=== PATIENT | male | born 1955 | race Caucasian/White ===

== ENCOUNTER 2018-09-07 12:05 | Inpatient (IN) | payer OTHER ==
[2018-09-07] VITALS (10 sets, daily range): BP systolic 91–106; BP diastolic 48–71
[~2018-09-07] VITALS: Ht 185.4 cm; Wt 108.9 kg
--- OUTSIDE RECORDS SUMMARY | 2018-09-07 13:39 | XMS REPORT ---
Author Author MARNIE NGUYỄN [facility] [address] Address [address] [place] [address] Care Team Providers Care Mushroom Picker Name Role Phone MARNIE NGUYỄN Unavailable PROBLEMS Type Condition ICD9-CM Code [id number] Code Onset Dates Condition Status SNOMED Code Problem Renal calculus, left N20.0 Active 98190781 Problem Degenerative disc disease, lumbar M51.36 Active 31770043 Problem Hypothyroidism (acquired) E03.9 Active 633790091 Problem Essential hypertension I10 Active 51783724 Problem Hyperlipidemia LDL goal <130 E78.5 Active 82219136 Problem Hyperlipidemia LDL goal <130 E78.5 Active 35488547 ALLERGIES No Information ENCOUNTERS Encounter Location Date Diagnosis [facility] [address] [place] [address] Jun, [facility] [address] [place] [address] May, Essential hypertension I10 and Hyperlipidemia LDL goal <130 E78.5 [facility] [address] [place] [address] May, [facility] [address] [place] [address] March, Essential hypertension I10 [facility] [address] [place] [address] March, [facility] [address] [place] [address] March, [facility] [address] [place] [address] Feb, Essential hypertension I10 and Hypothyroidism (acquired) E03.9 [facility] [address] [place] [address] Jan, [facility] [address] [place] [address] Jan, Renal calculus, left N20.0 [facility] [place] [address] [place] [address] Jan, [facility] [address] [address] Dec, Degenerative disc disease, lumbar M51.36 ; Essential hypertension I10 and Hyperlipidemia LDL goal <130 E78.5 [facility] [address] [place] [address] Feb, Lumbar spine strain, initial encounter S39.012A and Tubular adenoma of colon D12.6 [facility] [address] [place] [address] Dec, Essential hypertension I10 ; Hyperlipidemia LDL goal <130 E78.5 ; Screening for colon cancer Z12.11 and Hypothyroidism (acquired) E03.9 [facility] [address] [address] Dec, [facility] [address] [address] Dec, Essential hypertension I10 [facility] [address] [place] [address] Nov, [facility] [address] [address] Nov, [facility] [address] [address] Nov, [facility] [address] [address] Jun, [facility] [address] [address] Apr, Essential hypertension I10 [facility] [address] Apr, Essential hypertension with goal blood pressure less than 140\/90 I10 [facility] [address] [address] March, Essential hypertension with goal blood pressure less than 140\/90 I10 ; Other seasonal allergic rhinitis J30.2 and Oral herpes simplex infection B00.2 [address] [address] [place] [address] March, Essential hypertension with goal blood pressure less than 140\/90 I10 [facility] [place] [address] [place] [address] Feb, Essential hypertension with goal blood pressure less than 140\/90 I10 [facility] [place] [address] [place] [address] Dec, [facility] [place] [address] [place] [address] Dec, Essential hypertension I10 [facility] [place] [address] [place] [address] Oct, Essential hypertension I10 ; Hyperlipidemia, unspecified hyperlipidemia type E78.5 ; Bilateral low back pain without sciatica M54.5 and Skin lesion L98.9 [facility] [place] [address] [place] [address] Sep, [facility] [place] [address] [place] [address] Sep, [facility] [place] [address] [place] [address] Aug, [facility] [place] [address] [place] [address] Aug, Seborrheic keratosis L82.1 [facility] [place] [address] [place] [address] May, [facility] [place] [address] [place] [address] May, Visit for suture removal V58.32 [facility] [place] [address] [place] [address] 08 May, 2015 Visit for suture removal V58.32 and Seborrheic keratosis 702.19 [facility] [place] [address] [place] [address] May, Nevus 216.9 [facility] [address] [facility] [id number] [address] Feb, [facility] [address] [place] [id number] [address] Feb, [facility] [address] [place] [address] Jul, [facility] [address] [facility] [id number] [place] [address] Jul, [facility] [address] [place] [address] Aug, [facility] [place] [address] [place] [address] Aug, [facility] [address] [place] [address] Jul, IMMUNIZATIONS No Known Immunizations SOCIAL HISTORY Never Assessed REASON FOR VISIT follow up lab PLAN OF CARE VITAL SIGNS MEDICATIONS Unknown Medications RESULTS No Results PROCEDURES No Known procedures INSTRUCTIONS MEDICATIONS ADMINISTERED No Known Medications MEDICAL (GENERAL) HISTORY Type Description Date Medical History Nevus Medical History Hypothyroidism Medical History Hyperlipidemia Medical History Hypertension Medical History Arthritis Medical History kindey stone Surgical History left knee replacement Surgical History right knee replacement Hospitalization History Surgery(s) only Hospitalization History kidney stone 2018
--- OUTSIDE RECORDS SUMMARY | 2018-09-07 13:39 | XMS REPORT ---
Author Author MARNIE NGUYỄN [facility] [address] Address [address] [place] [address] Care Team Providers Care Pen Tender Name Role Phone MARNIE NGUYỄN Unavailable PROBLEMS Type Condition ICD9-CM Code TOJ70-PD Code Onset Dates Condition Status SNOMED Code Problem Renal calculus, left N20.0 Active 76227706 Problem Degenerative disc disease, lumbar M51.36 Active 64166906 Problem Hypothyroidism (acquired) E03.9 Active 440454488 Problem Essential hypertension I10 Active 99614611 Problem Hyperlipidemia LDL goal <130 E78.5 Active 64425196 Problem Hyperlipidemia LDL goal <130 E78.5 Active 11754361 ALLERGIES No Information ENCOUNTERS Encounter Location Date Diagnosis [facility] [address] [place] [address] Jun, [facility] [address] [place] [address] May, Essential hypertension I10 and Hyperlipidemia LDL goal <130 E78.5 [facility] [address] [place] [address] May, [facility] [address] [place] [address] March, Essential hypertension I10 [facility] [address] [place] [address] March, [facility] [address] [place] [address] March, [facility] [address] [place] [address] Feb, Essential hypertension I10 and Hypothyroidism (acquired) E03.9 [facility] [address] [place] [address] Jan, [facility] [address] [place] [address] Jan, Renal calculus, left N20.0 [facility] [place] [address] [place] [address] Jan, [facility] [address] [address] Dec, Degenerative disc disease, lumbar M51.36 ; Essential hypertension I10 and Hyperlipidemia LDL goal <130 E78.5 [facility] [address] [place] [address] Feb, Lumbar spine strain, initial encounter S39.012A and Tubular adenoma of colon D12.6 [facility] [address] [place] [address] Dec, Essential hypertension I10 ; Hyperlipidemia LDL goal <130 E78.5 ; Screening for colon cancer Z12.11 and Hypothyroidism (acquired) E03.9 [facility] [address] [address] Dec, [facility] [address] [address] Dec, Essential hypertension I10 [facility] [address] [place] [address] Nov, [facility] [address] [address] Nov, [facility] [address] [address] Nov, [facility] [address] [address] Jun, [facility] [address] [address] Apr, Essential hypertension I10 [facility] [address] Apr, Essential hypertension with goal blood pressure less than 140\/90 I10 [facility] [address] [address] March, Essential hypertension with goal blood pressure less than 140\/90 I10 ; Other seasonal allergic rhinitis J30.2 and Oral herpes simplex infection B00.2 [address] [address] [place] [address] March, Essential hypertension with goal blood pressure less than 140\/90 I10 [facility] [place] [address] [place] [address] Feb, Essential hypertension with goal blood pressure less than 140\/90 I10 [facility] [place] [address] [place] [address] Dec, [facility] [place] [address] [place] [address] Dec, Essential hypertension I10 [facility] [place] [address] [place] [address] Oct, Essential hypertension I10 ; Hyperlipidemia, unspecified hyperlipidemia type E78.5 ; Bilateral low back pain without sciatica M54.5 and Skin lesion L98.9 [facility] [place] [address] [place] [address] Sep, [facility] [address] [place] [address] Sep, [facility] [address] [place] [address] Aug, [facility] [address] [place] [address] Aug, Seborrheic keratosis L82.1 [facility] [address] [place] [address] May, [facility] [address] [place] [address] May, Visit for suture removal V58.32 [facility] [address] [place] [address] 08 May, 2015 Visit for suture removal V58.32 and Seborrheic keratosis 702.19 [facility] [place] [address] [place] [address] May, Nevus 216.9 [facility] [address] [facility] [id number] [address] Feb, [facility] [place] [address] [place] [id number] [address] Feb, [facility] [address] [place] [address] Jul, [facility] [place] [address] [facility] [id number] [place] [address] Jul, [facility] [address] [place] [address] Aug, [facility] [place] [address] [place] [address] Aug, [facility] [address] [place] [address] Jul, IMMUNIZATIONS No Known Immunizations SOCIAL HISTORY Never Assessed REASON FOR VISIT questions about lab results PLAN OF CARE VITAL SIGNS MEDICATIONS Unknown [...]
--- OUTSIDE RECORDS SUMMARY | 2018-09-07 13:39 | XMS REPORT ---
Author Author MARNIE NGUYỄN Organization [facility] [address] Address [address] [place] [address] Care Team Providers Care Supervisor Ditching Name Role Phone MARNIE NGUYỄN Unavailable PROBLEMS Type Condition ICD9-CM Code VVT23-QS Code Onset Dates Condition Status SNOMED Code Problem Renal calculus, left N20.0 Active 72604202 Problem Degenerative disc disease, lumbar M51.36 Active 97764149 Problem Hypothyroidism (acquired) E03.9 Active 311058842 Problem Essential hypertension I10 Active 06786219 Problem Hyperlipidemia LDL goal <130 E78.5 Active 98513058 Problem Hyperlipidemia LDL goal <130 E78.5 Active 34017439 ALLERGIES No Information ENCOUNTERS Encounter Location Date Diagnosis [facility] [address] [place] [address] Jun, [facility] [address] [place] [address] May, Essential hypertension I10 and Hyperlipidemia LDL goal <130 E78.5 [facility] [address] [place] [address] May, [facility] [address] [place] [address] March, Essential hypertension I10 [facility] [address] [place] [address] March, [facility] [address] [place] [address] March, [facility] [address] [place] [address] Feb, Essential hypertension I10 and Hypothyroidism (acquired) E03.[address] [address] Jan, [address] [address] Jan, Renal calculus, left N20.[address] [address] Jan, [address] [address] Dec, Degenerative disc disease, lumbar M51.36 ; Essential hypertension I10 and Hyperlipidemia LDL goal <[address] [address] Feb, Lumbar spine strain, initial encounter S39.012A and Tubular adenoma of colon D12.[address] [address] Dec, Essential hypertension I10 ; Hyperlipidemia LDL goal <130 E78.5 ; Screening for colon cancer Z12.11 and Hypothyroidism (acquired) E03.[address] [address] Dec, [address] [address] Dec, Essential hypertension I10 [address] [address] Nov, [address] [address] Nov, [address] [address] Nov, [address] [address] Jun, [address] [address] Apr, Essential hypertension I10 [address] [address] Apr, Essential hypertension with goal blood pressure less than 140\/[address] [address] March, Essential hypertension with goal blood pressure less than 140\/90 I10 ; Other seasonal allergic rhinitis J30.2 and Oral herpes simplex infection B00.[address] [address] March, Essential hypertension with goal blood pressure less than 140\/90 I10 [facility] [address] [place] [address] 07 Feb, 2016 Essential hypertension with goal blood pressure less than 140\/[address] [address] Dec, [address] [address] Dec, Essential hypertension I10 [address] [address] Oct, Essential hypertension I10 ; Hyperlipidemia, unspecified hyperlipidemia type E78.5 ; Bilateral low back pain without sciatica M54.5 and Skin lesion L98.[address] [address] Sep, [address] [address] Sep, [address] [address] Aug, [address] [address] Aug, Seborrheic keratosis L82.[address] [address] May, [address] [address] 16 May, 2015 Visit for suture removal V58.[address] [address] 08 May, 2015 Visit for suture removal V58.32 and Seborrheic keratosis 702.[address] [address] May, Nevus 216.9 [facility] [address] [id number] [address] 14 Feb, 2015 [facility] [address] [place] [id number] [address] 13 Feb, [address] [address] 10 Jul, 2014 [facility] [address] [place] [id number] [address] Jul, [facility] [address] [place] [address] Aug, [facility] [address] [place] [address] Aug, [address] [address] Jul, IMMUNIZATIONS No Known Immunizations SOCIAL HISTORY Never Assessed REASON FOR VISIT Medication refill request PLAN OF CARE VITAL SIGNS MEDICATIONS Medication Instructions Dosage Frequency Start Date End Date Duration Status Norvasc 2.5 MG Orally Once a day 1 tablet 24h Feb, Active RESULTS No Results PROCEDURES No Known procedures INSTRUCTIONS MEDICATIONS ADMINISTERED No Known Medications MEDICAL (GENERAL) HISTORY Type Description Date Medical History Nevus Medical History Hypothyroidism Medical History Hyperlipidemia Medical History Hypertension Medical History Arthritis Medical History kindey stone Surgical History left knee replacement Surgical History right knee replacement Hospitalization History Surgery(s) only Hospitalization History kidney stone 2017
--- OUTSIDE RECORDS SUMMARY | 2018-09-07 13:39 | XMS REPORT ---
Author Author MARNIE NGUYỄN [facility] [address] Address [address] [place] [address] Care Team Providers Care Supervisor Sign Shop Name Role Phone MARNIE NGUYỄN Unavailable PROBLEMS Type Condition ICD9-CM Code GNI76-AF Code Onset Dates Condition Status SNOMED Code Problem Renal calculus, left N20.0 Active 86125378 Problem Degenerative disc disease, lumbar M51.36 Active 05156082 Problem Hypothyroidism (acquired) E03.9 Active 499795961 Problem Essential hypertension I10 Active 96794191 Problem Hyperlipidemia LDL goal <130 E78.5 Active 48054514 Problem Hyperlipidemia LDL goal <130 E78.5 Active 41131614 ALLERGIES No Information ENCOUNTERS Encounter Location Date Diagnosis [facility] [address] [place] [address] Jun, [facility] [address] [place] [address] May, Essential hypertension I10 and Hyperlipidemia LDL goal <130 E78.5 [facility] [address] [place] [address] May, [facility] [address] [place] [address] March, Essential hypertension I10 [facility] [address] [place] [address] March, [facility] [address] [place] [address] March, [facility] [address] [place] [address] Feb, Essential hypertension I10 and Hypothyroidism (acquired) E03.9 [facility] [address] [place] [address] Jan, [facility] [address] [place] [address] Jan, Renal calculus, left N20.0 [facility] [place] [address] [place] [address] Jan, [facility] [address] [address] Dec, Degenerative disc disease, lumbar M51.36 ; Essential hypertension I10 and Hyperlipidemia LDL goal <130 E78.5 [facility] [address] [place] [address] Feb, Lumbar spine strain, initial encounter S39.012A and Tubular adenoma of colon D12.6 [facility] [address] [place] [address] Dec, Essential hypertension I10 ; Hyperlipidemia LDL goal <130 E78.5 ; Screening for colon cancer Z12.11 and Hypothyroidism (acquired) E03.9 [facility] [address] [address] Dec, [facility] [address] [address] Dec, Essential hypertension I10 [facility] [address] [place] [address] Nov, [facility] [address] [address] Nov, [facility] [address] [address] Nov, [facility] [address] [address] Jun, [facility] [address] [address] Apr, Essential hypertension I10 [facility] [address] Apr, Essential hypertension with goal blood pressure less than 140\/90 I10 [facility] [address] [address] March, Essential hypertension with goal blood pressure less than 140\/90 I10 ; Other seasonal allergic rhinitis J30.2 and Oral herpes simplex infection B00.2 [address] [address] [place] [address] March, Essential hypertension with goal blood pressure less than 140\/90 I10 [facility] [place] [address] [place] [address] Feb, Essential hypertension with goal blood pressure less than 140\/90 I10 [facility] [place] [address] [place] [address] Dec, [facility] [place] [address] [place] [address] Dec, Essential hypertension I10 [facility] [place] [address] [place] [address] Oct, Essential hypertension I10 ; Hyperlipidemia, unspecified hyperlipidemia type E78.5 ; Bilateral low back pain without sciatica M54.5 and Skin lesion L98.9 [facility] [place] [address] [place] [address] Sep, [facility] [place] [address] [place] [address] Sep, [facility] [place] [address] [place] [address] Aug, [facility] [address] [place] [address] Aug, Seborrheic keratosis L82.1 [facility] [place] [address] [place] [address] May, [facility] [address] [place] [address] May, Visit for suture removal V58.32 [facility] [place] [address] [place] [address] 08 May, 2015 Visit for suture removal V58.32 and Seborrheic keratosis 702.19 [facility] [place] [address] [place] [address] May, Nevus 216.9 [facility] [address] [facility] [id number] [address] Feb, [facility] [address] [place] [id number] [address] Feb, [facility] [place] [address] [place] [address] Jul, [facility] [address] [facility] [id number] [place] [address] Jul, [facility] [address] [place] [address] Aug, [facility] [place] [address] [place] [address] Aug, [facility] [address] [place] [address] Jul, IMMUNIZATIONS No Known Immunizations SOCIAL HISTORY Never Assessed REASON FOR VISIT Lab (walk-in), Fasting lipids. Shaunna Grace RN PLAN OF CARE Activity Details Follow Up prn Reason: VITAL SIGNS MEDICATIONS Unknown Medications RESULTS No Results PROCEDURES Procedure Date Ordered Result Body Site LIPID PANEL June 17, 2018 VENIPUNCT, ROUTINE* June 17, 2018 INSTRUCTIONS MEDICATIONS ADMINISTERED No Known Medications MEDICAL (GENERAL) HISTORY Type Description Date Medical History Nevus Medical History Hypothyroidism Medical History Hyperlipidemia Medical History Hypertension Medical History Arthritis Medical History kindey stone Surgical History left knee replacement Surgical History right knee replacement Hospitalization History Surgery(s) only Hospitalization History kidney stone 2018
--- OUTSIDE RECORDS SUMMARY | 2018-09-07 13:39 | XMS REPORT ---
Author Author MARNIE NGUYỄN Organization [facility] [address] Address [address] [place] [address] Care Team Providers Care Tare Weigher Name Role Phone MARNIE NGUYỄN Unavailable PROBLEMS Type Condition ICD9-CM Code CSC63-PU Code Onset Dates Condition Status SNOMED Code Problem Renal calculus, left N20.0 Active 57650151 Problem Degenerative disc disease, lumbar M51.36 Active 12348826 Problem Hypothyroidism (acquired) E03.9 Active 958451772 Problem Essential hypertension I10 Active 76048622 Problem Hyperlipidemia LDL goal <130 E78.5 Active 92283664 Problem Hyperlipidemia LDL goal <130 E78.5 Active 79396671 ALLERGIES No Information ENCOUNTERS Encounter Location Date Diagnosis [facility] [address] [place] [address] Jun, [facility] [address] [place] [address] May, Essential hypertension I10 and Hyperlipidemia LDL goal <130 E78.5 [facility] [address] [place] [address] May, [facility] [address] [place] [address] March, Essential hypertension I10 [facility] [address] [place] [address] March, [facility] [address] [place] [address] March, [facility] [address] [place] [address] Feb, Essential hypertension I10 and Hypothyroidism (acquired) E03.[address] [address] Jan, [facility] [address] [place] [address] Jan, Renal calculus, left N20.[address] [address] Jan, [address] [address] Dec, Degenerative disc disease, lumbar M51.36 ; Essential hypertension I10 and Hyperlipidemia LDL goal <[address] [address] Feb, Lumbar spine strain, initial encounter S39.012A and Tubular adenoma of colon D12.[address] [address] Dec, Essential hypertension I10 ; Hyperlipidemia LDL goal <130 E78.5 ; Screening for colon cancer Z12.11 and Hypothyroidism (acquired) E03.[address] [address] Dec, [address] [address] Dec, Essential hypertension I10 [address] [address] Nov, [address] [address] Nov, [address] [address] Nov, [address] [address] Jun, [address] [address] Apr, Essential hypertension I10 [address] [address] Apr, Essential hypertension with goal blood pressure less than 140\/[address] [address] March, Essential hypertension with goal blood pressure less than 140\/90 I10 ; Other seasonal allergic rhinitis J30.2 and Oral herpes simplex infection B00.[address] [address] March, Essential hypertension with goal blood pressure less than 140\/90 I10 [facility] [place] [address] [place] [address] 07 Feb, 2016 Essential hypertension with goal blood pressure less than 140\/[address] [address] Dec, [address] [address] Dec, Essential hypertension I10 [address] [address] Oct, Essential hypertension I10 ; Hyperlipidemia, unspecified hyperlipidemia type E78.5 ; Bilateral low back pain without sciatica M54.5 and Skin lesion L98.[address] [address] Sep, [address] [address] Sep, [address] [address] Aug, [address] [address] Aug, Seborrheic keratosis L82.[address] [address] May, [address] [address] 16 May, 2015 Visit for suture removal V58.[address] [address] 08 May, 2015 Visit for suture removal V58.32 and Seborrheic keratosis 702.[address] [address] May, Nevus 216.9 [facility] [address] [id number] [address] 14 Feb, 2015 [facility] [address] [place] [id number] [address] 13 Feb, [address] [address] 10 Jul, 2014 [facility] [address] [place] [id number] [address] Jul, [facility] [address] [place] [address] Aug, [address] [address] Aug, [address] [address] Jul, IMMUNIZATIONS No Known Immunizations SOCIAL HISTORY Never Assessed REASON FOR VISIT refill request PLAN OF CARE VITAL SIGNS MEDICATIONS Medication Instructions Dosage Frequency Start Date End Date Duration Status Atorvastatin Calcium 40 mg Orally Once a day at bedtime 1 tablet March, Active RESULTS No Results PROCEDURES No Known [...]
--- OUTSIDE RECORDS SUMMARY | 2018-09-07 13:40 | XMS REPORT ---
Author YANG Beal Organization [employer] Address Unknown Phone Unavailable Care Team Providers Care Managing Manager Name Role Phone YANG HALL CP Unavailable Allergies No Known Allergies Problems No Known Problems Medications Medication Code System Code Instructions Start Date End Date Status Dosage Carvedilol [facility] [address]-93 12.5 MG Orally Twice a day 1 tablet with food Results No Known Results Summary Purpose [employer] Submission
--- OUTSIDE RECORDS SUMMARY | 2018-09-07 13:40 | XMS REPORT ---
Author YANG Beal Organization [employer] Address Unknown Phone Unavailable Care Team Providers Care Agriscience Technology Instructor Name Role Phone YANG HALL CP Unavailable Allergies No Known Allergies Problems No Known Problems Medications No Known Medications Results No Known Results Summary Purpose [employer] Submission
--- OUTSIDE RECORDS SUMMARY | 2018-09-07 13:40 | XMS REPORT ---
Author Author MARNIE NGUYỄN Organization [facility] [place] Address [address] [place] [address] Care Team Providers Care Staking Engineer Name Role Phone MARNIE NGUYỄN Unavailable PROBLEMS Type Condition ICD9-CM Code GCA77-CB Code Onset Dates Condition Status SNOMED Code Problem Renal calculus, left N20.0 Active 96733876 Problem Degenerative disc disease, lumbar M51.36 Active 30885865 Problem Hypothyroidism (acquired) E03.9 Active 985503369 Problem Essential hypertension I10 Active 66407111 Problem Hyperlipidemia LDL goal <130 E78.5 Active 96100073 Problem Hyperlipidemia LDL goal <130 E78.5 Active 74512727 ALLERGIES Substance Reaction Event Type Date Status Hydrochlorothiazide rash Drug Allergy Dec, Active ENCOUNTERS Encounter Location Date Diagnosis [facility] [place] [address] [facility] [address] [id number] [place] [id number] March, Essential hypertension I10 [facility] [place] [address] [facility] [address] [id number] [place] [id number] March, [facility] [place] [address] [facility] [address] [id number] [place] [id number] March, [facility] [place] [address] [facility] [address] [id number] [place] [id number] Feb, Essential hypertension I10 and Hypothyroidism (acquired) E03.9 [facility] [place] [address] [facility] [address] [id number] [place] [id number] Jan, [facility] [place] [address] [facility] [address] [id number] [place] [phone] Jan, Renal calculus, left N20.0 [facility] [place] [address] [facility] [address] [id number] [place] [id number] Jan, [facility] [place] [address] [facility] [address] [id number] [place] [id number] Dec, Degenerative disc disease, lumbar M51.36 ; Essential hypertension I10 and Hyperlipidemia LDL goal <130 E78.5 [facility] [place] [address] [facility] [address] [id number] [place] [id number] Feb, Lumbar spine strain, initial encounter S39.012A and Tubular adenoma of colon D12.6 [facility] [place] [address] [facility] [address] [id number] [place] [id number] Dec, Essential hypertension I10 ; Hyperlipidemia LDL goal <130 E78.5 ; Screening for colon cancer Z12.11 and Hypothyroidism (acquired) E03.9 [facility] [place] [address] [facility] [address] [id number] [place] [id number] Dec, [facility] [place] [address] [facility] [address] [id number] [place] [id number] Dec, Essential hypertension I10 [facility] [place] [address] [facility] [address] [id number] [place] [id number] Nov, [facility] [place] [address] [facility] [address] [id number] [place] [id number] Nov, [facility] [place] [address] [facility] [address] [id number] [place] [id number] Nov, [facility] [place] [address] [facility] [address] [id number] [place] [id number] Jun, [facility] [place] [address] [facility] [address] [id number] [place] [id number] Apr, Essential hypertension I10 [facility] [place] [address] [facility] [address] [id number] [place] [id number] Apr, Essential hypertension with goal blood pressure less than 140\/90 I10 [facility] [place] [address] [facility] [address] [id number] [place] [id number] March, Essential hypertension with goal blood pressure less than 140\/90 I10 ; Other seasonal allergic rhinitis J30.2 and Oral herpes simplex infection B00.2 [facility] [place] [address] [facility] [address] [id number] [place] [id number] March, Essential hypertension with goal blood pressure less than 140\/90 I10 [facility] [place] [address] [facility] [address] [id number] [place] [id number] Feb, Essential hypertension with goal blood pressure less than 140\/90 I10 [facility] [place] [address] [facility] [address] [id number] [place] [id number] Dec, [facility] [place] [address] [facility] [address] [id number] [place] [id number] Dec, Essential hypertension I10 [facility] [place] [address] [facility] [address] [id number] [place] [id number] Oct, Essential hypertension I10 ; Hyperlipidemia, unspecified hyperlipidemia type E78.5 ; Bilateral low back pain without sciatica M54.5 and Skin lesion L98.9 [facility] [place] [address] [facility] [address] [id number] [place] [id number] Sep, [facility] [place] [address] [facility] [address] [id number] [place] [id number] Sep, [facility] [place] [address] [facility] [address] [id number] [place] [id number] Aug, [facility] [place] [address] [place] [address] [address] [id number] [place] [id number] Aug, Seborrheic keratosis L82.1 [facility] [place] [address] [facility] [address] [id number] [place] [id number] May, [facility] [place] [address] [facility] [address] [id number] [place] [id number] May, Visit for suture removal V58.32 [facility] [place] [address] [facility] [address] [id number] [place] [id number] 08 May, 2015 Visit for suture removal V58.32 and Seborrheic keratosis 702.19 [facility] [place] [address] [facility] [address] [id number] [place] [id number] May, Nevus 216.9 [facility] [address] [facility] [id number] [place] [address] 14 Feb, 2015 [facility] [address] [facility] [id number] [place] [address] Feb, [facility] [place] [address] [facility] [address] [id number] [place] [id number] Jul, [facility] [address] [facility] [id number] [place] [address] Jul, [facility] [place] [address] [facility] [address] [id number] [place] [id number] Aug, [facility] [place] [address] [facility] [address] [id number] [place] [id number] Aug, [facility] [place] [address] [facility] [address] [id number] [place] [id number] Jul, IMMUNIZATIONS No Known Immunizations SOCIAL HISTORY Never Assessed REASON FOR VISIT back pain for the past 2 weeks, [facility] PLAN OF CARE Activity Details Follow Up 2 Weeks Reason:pattirstriston BP check VITAL SIGNS Height 73 in 2018-01-18 Weight 237.4 lbs 2018-01-18 Temperature 97.7 degrees Fahrenheit 2018-01-18 Heart Rate 68 bpm 2018-01-18 Respiratory Rate 18 2018-01-18 BMI 31.32 kg/m2 2018-01-18 Blood pressure systolic 154 mmHg 2018-01-18 Blood pressure diastolic 92 mmHg 2018-01-18 MEDICATIONS Medication Instructions Dosage Frequency Start Date End Date Duration Status Flonase Allergy Relief 50 MCG/ACT Nasally Once a day 1 spray in each nostril 24h March, 30 day(s) Active Cyclobenzaprine HCl 5 mg Orally Three times a day 1 tablet as needed 8h Feb, Active Carvedilol 25 MG Orally Twice a day 1 tablet with food 12h 90 days Active Levothyroxine Sodium 75 mcg Orally Once a day 1 tablet 24h 90 days Active Atorvastatin Calcium 20MG Take 1 tablet daily at bedtime. Avoid grapefruit & grapefruit products. 90 Active Losartan Potassium 100MG Orally Once a day 1 tablet 24h 90 Active RESULTS No Results PROCEDURES Procedure Date Ordered Result Body Site COMPREHEN METABOLIC PANEL Jan 18, 2018 COMPLETE CBC W/AUTO DIFF WBC Jan 18, 2018 VENIPUNCT, ROUTINE* Jan 18, 2018 INSTRUCTIONS MEDICATIONS ADMINISTERED No Known Medications MEDICAL (GENERAL) HISTORY Type Description Date Medical History Nevus Medical History Hypothyroidism Medical History Hyperlipidemia Medical History Hypertension Medical History Arthritis Medical History kindey stone Surgical History left knee replacement Surgical History right knee replacement Hospitalization History Surgery(s) only Hospitalization History kidney stone 2018
--- OUTSIDE RECORDS SUMMARY | 2018-09-07 13:40 | XMS REPORT ---
Author YANG Beal Organization [employer] Address Unknown Phone Unavailable Care Team Providers Care Dairy Science Teacher Name Role Phone YANG HALL CP Unavailable Allergies No Known Allergies Problems No Known Problems Medications No Known Medications Results No Known Results Summary Purpose [employer] Submission
--- OUTSIDE RECORDS SUMMARY | 2018-09-07 13:40 | XMS REPORT ---
Author Author MARNIE NGUYỄN Organization [facility] [address] Address [address] [place] [address] Care Team Providers Care Manager Fast Food Name Role Phone MARNIE NGUYỄN Unavailable PROBLEMS Type Condition ICD9-CM Code DII53-PQ Code Onset Dates Condition Status SNOMED Code Problem Renal calculus, left N20.0 Active 00164171 Problem Degenerative disc disease, lumbar M51.36 Active 23245512 Problem Hypothyroidism (acquired) E03.9 Active 101623393 Problem Essential hypertension I10 Active 57143967 Problem Hyperlipidemia LDL goal <130 E78.5 Active 87014934 Problem Hyperlipidemia LDL goal <130 E78.5 Active 82685056 ALLERGIES No Information ENCOUNTERS Encounter Location Date Diagnosis [facility] [address] [place] [address] May, [facility] [place] [address] [place] [address] March, Essential hypertension I10 [facility] [place] [address] [place] [address] March, [facility] [address] [place] [address] March, [address] [address] Feb, Essential hypertension I10 and Hypothyroidism (acquired) E03.9 [facility] [address] [place] [address] Jan, [facility] [address] [address] Jan, Renal calculus, left N20.0 [facility] [place] [address] [place] [address] Jan, [facility] [place] [address] [place] [address] 28 Dec, 2017 Degenerative disc disease, lumbar M51.36 ; Essential hypertension I10 and Hyperlipidemia LDL goal <[address] [address] Feb, Lumbar spine strain, initial encounter S39.012A and Tubular adenoma of colon D12.6 [facility] [place] [address] [place] [address] Dec, Essential hypertension I10 ; Hyperlipidemia LDL goal <130 E78.5 ; Screening for colon cancer Z12.11 and Hypothyroidism (acquired) E03.9 [facility] [place] [address] [place] [address] Dec, [facility] [place] [address] [place] [address] Dec, Essential hypertension I10 [facility] [place] [address] [place] [address] Nov, [facility] [place] [address] [place] [address] Nov, [facility] [place] [address] [place] [address] Nov, [facility] [place] [address] [place] [address] Jun, [facility] [place] [address] [place] [address] Apr, Essential hypertension I10 [facility] [place] [address] [place] [address] Apr, Essential hypertension with goal blood pressure less than 140\/90 I10 [facility] [place] [address] [place] [address] March, Essential hypertension with goal blood pressure less than 140\/90 I10 ; Other seasonal allergic rhinitis J30.2 and Oral herpes simplex infection B00.2 [facility] [place] [address] [place] [address] March, Essential hypertension with goal blood pressure less than 140\/90 I10 [facility] [place] [address] [place] [address] Feb, Essential hypertension with goal blood pressure less than 140\/90 I10 [facility] [place] [address] [place] [address] Dec, [facility] [place] [address] [place] [address] Dec, Essential hypertension I10 [facility] [place] [address] [place] [address] Oct, Essential hypertension I10 ; Hyperlipidemia, unspecified hyperlipidemia type E78.5 ; Bilateral low back pain without sciatica M54.5 and Skin lesion L98.9 [facility] [address] [address] Sep, [facility] [address] [address] Sep, [facility] [address] [address] Aug, [facility] [address] [address] Aug, Seborrheic keratosis L82.1 [facility] [address] [address] May, [facility] [address] [address] May, Visit for suture removal V58.32 [facility] [address] [address] May, Visit for suture removal V58.32 and Seborrheic keratosis 702.[address] [address] May, Nevus 216.9 [facility] [address] [place] [address] 14 Feb, 2015 [facility] [address] [place] [address] Feb, [address] [address] Jul, [facility] [address] [place] [address] Jul, [address] [address] Aug, [address] [address] Aug, [address] [address] Jul, IMMUNIZATIONS No Known Immunizations SOCIAL HISTORY Never Assessed REASON FOR VISIT Blood pressure check PLAN OF CARE VITAL SIGNS MEDICATIONS Unknown [...]
--- OUTSIDE RECORDS SUMMARY | 2018-09-07 13:40 | XMS REPORT ---
Author Author ADITYA ARZATE [facility] [address] Address [address] [place] [address] Care Team Providers Care Mixer Runner Name Role Phone ADITYA ARZATE Unavailable PROBLEMS Type Condition ICD9-CM Code EPR03-PA Code Onset Dates Condition Status SNOMED Code Problem Renal calculus, left N20.0 Active 14858248 Problem Degenerative disc disease, lumbar M51.36 Active 91127791 Problem Hypothyroidism (acquired) E03.9 Active 244099939 Problem Essential hypertension I10 Active 09503846 Problem Hyperlipidemia LDL goal <130 E78.5 Active 11082066 Problem Hyperlipidemia LDL goal <130 E78.5 Active 28872434 ALLERGIES No Information ENCOUNTERS Encounter Location Date Diagnosis [facility] [place] [address] [place] [address] March, Essential hypertension I10 [facility] [address] [place] [address] March, [facility] [address] [place] [address] March, [facility] [place] [address] [place] [address] 05 Feb, 2018 Essential hypertension I10 and Hypothyroidism (acquired) E03.9 [facility] [address] [place] [address] Jan, [facility] [place] [address] [place] [address] Jan, Renal calculus, left N20.0 [facility] [address] [place] [address] Jan, [facility] [address] [place] [address] 28 Dec, 2017 Degenerative disc disease, lumbar M51.36 ; Essential hypertension I10 and Hyperlipidemia LDL goal <[address] [address] Feb, Lumbar spine strain, initial encounter S39.012A and Tubular adenoma of colon D12.6 [facility] [place] [address] [place] [address] Dec, Essential hypertension I10 ; Hyperlipidemia LDL goal <130 E78.5 ; Screening for colon cancer Z12.11 and Hypothyroidism (acquired) E03.9 [facility] [place] [address] [place] [address] Dec, [facility] [place] [address] [place] [address] Dec, Essential hypertension I10 [facility] [place] [address] [place] [address] Nov, [facility] [place] [address] [place] [address] Nov, [facility] [place] [address] [place] [address] Nov, [facility] [place] [address] [place] [address] Jun, [facility] [place] [address] [place] [address] Apr, Essential hypertension I10 [facility] [place] [address] [place] [address] Apr, Essential hypertension with goal blood pressure less than 140\/90 I10 [facility] [place] [address] [place] [address] March, Essential hypertension with goal blood pressure less than 140\/90 I10 ; Other seasonal allergic rhinitis J30.2 and Oral herpes simplex infection B00.2 [facility] [place] [address] [place] [address] March, Essential hypertension with goal blood pressure less than 140\/90 I10 [facility] [place] [address] [place] [address] Feb, Essential hypertension with goal blood pressure less than 140\/90 I10 [facility] [place] [address] [place] [address] Dec, [facility] [place] [address] [place] [address] Dec, Essential hypertension I10 [facility] [place] [address] [place] [address] Oct, Essential hypertension I10 ; Hyperlipidemia, unspecified hyperlipidemia type E78.5 ; Bilateral low back pain without sciatica M54.5 and Skin lesion L98.9 [facility] [place] [address] [place] [address] Sep, [facility] [place] [address] [place] [address] Sep, [facility] [place] [address] [place] [address] Aug, [facility] [place] [address] [place] [phone] Aug, Seborrheic keratosis L82.1 [facility] [place] [address] [place] [address] May, [facility] [place] [address] [place] [address] May, Visit for suture removal V58.32 [facility] [place] [address] [place] [address] May, Visit for suture removal V58.32 and Seborrheic keratosis 702.19 [facility] [place] [address] [place] [address] May, [address]us [address] [facility] [address] [place] [id number] [place] [address] 14 Feb, 2015 [facility] [address] [address] [address] Feb, [address] [address] Jul, [facility] [address] [place] [address] Jul, [address] [address] Aug, [facility] [address] [address] Aug, [facility] [address] [address] Jul, IMMUNIZATIONS No Known Immunizations SOCIAL HISTORY Never Assessed REASON FOR VISIT FMLA PLAN OF CARE VITAL SIGNS MEDICATIONS Unknown [...]
--- OUTSIDE RECORDS SUMMARY | 2018-09-07 13:40 | XMS REPORT ---
Author Author MARNIE NGUYỄN Organization [facility] [address] Address [address] [place] [address] Care Team Providers Care Business Continuity Manager Name Role Phone MARNIE NGUYỄN Unavailable PROBLEMS Type Condition ICD9-CM Code FGP88-XF Code Onset Dates Condition Status SNOMED Code Problem Renal calculus, left N20.0 Active 61469021 Problem Degenerative disc disease, lumbar M51.36 Active 21102066 Problem Hypothyroidism (acquired) E03.9 Active 310507071 Problem Essential hypertension I10 Active 12931389 Problem Hyperlipidemia LDL goal <130 E78.5 Active 91644433 Problem Hyperlipidemia LDL goal <130 E78.5 Active 68479580 ALLERGIES No Information ENCOUNTERS Encounter Location Date Diagnosis [facility] [address] [place] [address] Jun, [facility] [address] [place] [address] May, Essential hypertension I10 and Hyperlipidemia LDL goal <130 E78.5 [facility] [address] [place] [address] May, [facility] [address] [place] [address] March, Essential hypertension I10 [facility] [address] [place] [address] March, [facility] [address] [place] [address] March, [facility] [address] [place] [address] Feb, Essential hypertension I10 and Hypothyroidism (acquired) E03.[address] [address] Jan, [facility] [address] [place] [address] Jan, Renal calculus, left N20.[address] [address] Jan, [address] [address] Dec, Degenerative disc disease, lumbar M51.36 ; Essential hypertension I10 and Hyperlipidemia LDL goal <[address] [address] Feb, Lumbar spine strain, initial encounter S39.012A and Tubular adenoma of colon D12.[address] [address] Dec, Essential hypertension I10 ; Hyperlipidemia LDL goal <130 E78.5 ; Screening for colon cancer Z12.11 and Hypothyroidism (acquired) E03.[address] [address] Dec, [address] [address] Dec, Essential hypertension I10 [address] [address] Nov, [address] [address] Nov, [address] [address] Nov, [address] [address] Jun, [address] [address] Apr, Essential hypertension I10 [address] [address] Apr, Essential hypertension with goal blood pressure less than 140\/[address] [address] March, Essential hypertension with goal blood pressure less than 140\/90 I10 ; Other seasonal allergic rhinitis J30.2 and Oral herpes simplex infection B00.[address] [address] March, Essential hypertension with goal blood pressure less than 140\/90 I10 [facility] [address] [place] [address] 07 Feb, 2016 Essential hypertension with goal blood pressure less than 140\/[address] [address] Dec, [address] [address] Dec, Essential hypertension I10 [address] [address] Oct, Essential hypertension I10 ; Hyperlipidemia, unspecified hyperlipidemia type E78.5 ; Bilateral low back pain without sciatica M54.5 and Skin lesion L98.[address] [address] Sep, [address] [address] Sep, [address] [address] Aug, [address] [address] Aug, Seborrheic keratosis L82.[address] [address] May, [address] [address] 16 May, 2015 Visit for suture removal V58.[address] [address] 08 May, 2015 Visit for suture removal V58.32 and Seborrheic keratosis 702.[address] [address] May, Nevus 216.9 [facility] [address] [id number] [address] 14 Feb, 2015 [facility] [address] [place] [id number] [address] 13 Feb, [address] [address] 10 Jul, 2014 [facility] [address] [place] [id number] [address] Jul, [facility] [address] [place] [address] Aug, [facility] [address] [place] [address] Aug, [address] [address] Jul, IMMUNIZATIONS No Known Immunizations SOCIAL HISTORY Never Assessed REASON FOR VISIT Requests return call PLAN OF CARE VITAL SIGNS MEDICATIONS Unknown [...]
--- OUTSIDE RECORDS SUMMARY | 2018-09-07 13:40 | XMS REPORT ---
Author Author MARNIE NGUYỄN Organization [facility] [address] Address [address] [place] [address] Care Team Providers Care Bottle Cleaner Name Role Phone MARNIE NGUYỄN Unavailable PROBLEMS Type Condition ICD9-CM Code BLC62-RC Code Onset Dates Condition Status SNOMED Code Problem Renal calculus, left N20.0 Active 00635360 Problem Degenerative disc disease, lumbar M51.36 Active 80546471 Problem Hypothyroidism (acquired) E03.9 Active 514757332 Problem Essential hypertension I10 Active 53064335 Problem Hyperlipidemia LDL goal <130 E78.5 Active 34109893 Problem Hyperlipidemia LDL goal <130 E78.5 Active 75106064 ALLERGIES Substance Reaction Event Type Date Status Hydrochlorothiazide rash Drug Allergy Feb, Active ENCOUNTERS Encounter Location Date Diagnosis [facility] [address] [place] [address] May, Essential hypertension I10 and Hyperlipidemia LDL goal <130 E78.5 [facility] [address] [place] [address] May, [facility] [address] [place] [address] March, Essential hypertension I10 [facility] [address] [place] [address] March, [facility] [address] [place] [address] March, [facility] [address] [place] [address] Feb, Essential hypertension I10 and Hypothyroidism (acquired) E03.9 [facility] [address] [place] [address] Jan, [facility] [address] [place] [address] Jan, Renal calculus, left N20.0 [facility] [address] [place] [address] 14 Jan, 2018 [facility] [address] [place] [address] Dec, Degenerative disc disease, lumbar M51.36 ; Essential hypertension I10 and Hyperlipidemia LDL goal <130 E78.5 [facility] [address] [place] [address] Feb, Lumbar spine strain, initial encounter S39.012A and Tubular adenoma of colon D12.6 [facility] [address] [place] [address] Dec, Essential hypertension I10 ; Hyperlipidemia LDL goal <130 E78.5 ; Screening for colon cancer Z12.11 and Hypothyroidism (acquired) E03.9 [facility] [address] [place] [address] Dec, [facility] [address] [place] [address] Dec, Essential hypertension I10 [facility] [address] [place] [address] Nov, [facility] [address] [place] [address] Nov, [facility] [address] [place] [address] Nov, [facility] [address] [place] [address] Jun, [facility] [address] [place] [address] Apr, Essential hypertension I10 [facility] [address] [place] [address] Apr, Essential hypertension with goal blood pressure less than 140\/90 I10 [facility] [address] [place] [address] March, Essential hypertension with goal blood pressure less than 140\/90 I10 ; Other seasonal allergic rhinitis J30.2 and Oral herpes simplex infection B00.2 [facility] [address] [place] [address] March, Essential hypertension with goal blood pressure less than 140\/90 I10 [facility] [address] [place] [address] Feb, Essential hypertension with goal blood pressure less than 140\/90 I10 [facility] [address] [place] [address] Dec, [facility] [address] [place] [address] Dec, Essential hypertension I10 [facility] [address] [place] [address] Oct, Essential hypertension I10 ; Hyperlipidemia, unspecified hyperlipidemia type E78.5 ; Bilateral low back pain without sciatica M54.5 and Skin lesion L98.9 [facility] [address] [place] [address] Sep, [facility] [address] [place] [address] Sep, [facility] [address] [place] [address] Aug, [facility] [address] [place] [address] Aug, Seborrheic keratosis L82.1 [facility] [address] [place] [address] May, [facility] [address] [place] [address] May, Visit for suture removal V58.32 [facility] [address] [place] [address] 08 May, 2015 Visit for suture removal V58.32 and Seborrheic keratosis 702.19 [facility] [address] [place] [address] May, Nevus 216.9 [facility] [address] [place] [address] 14 Feb, 2015 [facility] [address] [place] [address] Feb, [facility] [address] [place] [address] Jul, [facility] [address] [address] 10 Jul, 2014 [facility] [address] [place] [address] 08 Aug, 2013 [facility] [address] [place] [address] Aug, [facility] [address] [place] [address] Jul, IMMUNIZATIONS No Known Immunizations SOCIAL HISTORY Never Assessed REASON FOR VISIT Blood Pressure, wanting a cardio appointment [facility] PLAN OF CARE Activity Details Follow Up prn Reason: VITAL SIGNS Height 73 in 2018-02-23 Weight 232.8 lbs 2018-02-23 Temperature 98.2 degrees Fahrenheit 2018-02-23 Heart Rate 86 bpm 2018-02-23 Respiratory Rate 16 2018-02-23 BMI 30.71 kg/m2 2018-02-23 Blood pressure systolic 144 mmHg 2018-02-23 Blood pressure diastolic 72 mmHg 2018-02-23 MEDICATIONS Medication Instructions Dosage Frequency Start Date End Date Duration Status Losartan Potassium 100MG Orally Once a day 1 tablet 24h 90 days Active Flonase Allergy Relief 50 MCG/ACT Nasally Once a day 1 spray in each nostril 24h March, 30 day(s) Active Norvasc 2.5 MG Orally Once a day 1 tablet 24h Feb, 30 day(s) Active Atorvastatin Calcium 20MG Take 1 tablet daily at bedtime. Avoid grapefruit & grapefruit products. 90 Active Levothyroxine Sodium 75 mcg Orally Once a day 1 tablet 24h 90 days Active Carvedilol 25 MG Orally Twice a day 1 tablet with food 12h 90 days Active Cyclobenzaprine HCl 5 mg Orally Three times a day 1 tablet as needed 8h Feb, Active RESULTS No Results PROCEDURES No [...]
--- OUTSIDE RECORDS SUMMARY | 2018-09-07 13:40 | XMS REPORT ---
Author Author ADITYA ARZATE [facility] [address] Address [address] [place] [address] Care Team Providers Care Remote Advisor Name Role Phone ADITYA ARZATE Unavailable PROBLEMS Type Condition ICD9-CM Code SIA24-UL Code Onset Dates Condition Status SNOMED Code Problem Renal calculus, left N20.0 Active 29459130 Problem Degenerative disc disease, lumbar M51.36 Active 45536075 Problem Hypothyroidism (acquired) E03.9 Active 914681473 Problem Essential hypertension I10 Active 09477513 Problem Hyperlipidemia LDL goal <130 E78.5 Active 30374769 Problem Hyperlipidemia LDL goal <130 E78.5 Active 95033552 ALLERGIES Substance Reaction Event Type Date Status Hydrochlorothiazide rash Drug Allergy Jan, Active ENCOUNTERS Encounter Location Date Diagnosis [facility] [address] [place] [address] March, Essential hypertension I10 [facility] [address] [place] [address] March, [facility] [address] [place] [address] March, [facility] [address] [place] [address] Feb, Essential hypertension I10 and Hypothyroidism (acquired) E03.9 [facility] [address] [place] [address] Jan, [facility] [address] [place] [address] Jan, Renal calculus, left N20.0 [facility] [address] [place] [address] Jan, [facility] [address] [place] [address] Dec, Degenerative disc disease, lumbar M51.36 ; Essential hypertension I10 and Hyperlipidemia LDL goal <130 E78.5 [facility] [address] [place] [address] Feb, Lumbar spine strain, initial encounter S39.012A and Tubular adenoma of colon D12.6 [facility] [address] [place] [address] Dec, Essential hypertension I10 ; Hyperlipidemia LDL goal <130 E78.5 ; Screening for colon cancer Z12.11 and Hypothyroidism (acquired) E03.9 [facility] [address] [place] [address] Dec, [facility] [address] [place] [address] Dec, Essential hypertension I10 [facility] [address] [place] [address] Nov, [facility] [address] [place] [address] Nov, [facility] [address] [place] [address] Nov, [facility] [address] [place] [address] Jun, [facility] [address] [place] [address] Apr, Essential hypertension I10 [facility] [address] [place] [address] Apr, Essential hypertension with goal blood pressure less than 140\/90 I10 [facility] [address] [place] [address] March, Essential hypertension with goal blood pressure less than 140\/90 I10 ; Other seasonal allergic rhinitis J30.2 and Oral herpes simplex infection B00.2 [facility] [address] [place] [address] March, Essential hypertension with goal blood pressure less than 140\/90 I10 [facility] [address] [place] [address] Feb, Essential hypertension with goal blood pressure less than 140\/90 I10 [facility] [address] [place] [address] Dec, [facility] [address] [place] [address] Dec, Essential hypertension I10 [facility] [address] [place] [address] Oct, Essential hypertension I10 ; Hyperlipidemia, unspecified hyperlipidemia type E78.5 ; Bilateral low back pain without sciatica M54.5 and Skin lesion L98.9 [facility] [address] [place] [address] Sep, [facility] [address] [place] [address] Sep, [facility] [address] [place] [address] Aug, [facility] [address] [place] [address] Aug, Seborrheic keratosis L82.1 [facility] [address] [place] [address] May, [facility] [address] [place] [address] May, Visit for suture removal V58.32 [facility] [address] [place] [address] 08 May, 2015 Visit for suture removal V58.32 and Seborrheic keratosis 702.19 [facility] [address] [place] [address] May, Nevus 216.9 [facility] [address] [place] [address] 14 Feb, 2015 [facility] [id number] [place] [phone] Feb, [facility] [address] [address] Jul, [facility] [id number] [place] [address] Jul, [facility] [address] [place] [address] Aug, [facility] [address] [place] [phone] Aug, [facility] [address] [place] [address] Jul, IMMUNIZATIONS No Known Immunizations SOCIAL HISTORY Never Assessed REASON FOR VISIT kidney stone ER visit for this on 02-04, [facility] PL[facility] OF CARE Activity Details Follow Up prn Reason: VITAL SIGNS Height 73 in 2018-02-07 Weight 231.6 lbs 2018-02-07 Temperature 98.3 degrees Fahrenheit 2018-02-07 Heart Rate 71 bpm 2018-02-07 Respiratory Rate 16 2018-02-07 BMI 30.55 kg/m2 2018-02-07 Blood pressure systolic 182 mmHg 2018-02-07 Blood pressure diastolic 94 mmHg 2018-02-07 MEDICATIONS Medication Instructions Dosage Frequency Start Date End Date Duration Status Levothyroxine Sodium 75 mcg Orally Once a day 1 tablet 24h 90 days Active Carvedilol 25 MG Orally Twice a day 1 tablet with food 12h 90 days Active Atorvastatin Calcium 20MG Take 1 tablet daily at bedtime. Avoid grapefruit & grapefruit products. 90 Active Losartan Potassium 100MG Orally Once a day 1 tablet 24h 90 Active Cyclobenzaprine HCl 5 mg Orally Three times a day 1 tablet as needed 8h Feb, Active Flonase Allergy Relief 50 MCG/ACT Nasally Once a day 1 spray in each nostril 24h March, 30 day(s) Active RESULTS No Results PROCEDURES No Known [...]
--- OUTSIDE RECORDS SUMMARY | 2018-09-07 13:41 | XMS REPORT | Clinical Summary ---
Author Author Admin, E Organization [facility] [place] Address Unknown Phone Unavailable Allergies, Adverse Reactions, Alerts Allergy Name Reaction Description Start Date Severity Status Provider CODEINE Vomiting Severe Active William Holliday MD Conditions or Problems Problem Name Problem Code Onset Date Status Entry Date Provider Comment Standard Description Annotate Screening for malignant neoplasms of colon V76.51 Active William Holliday MD Screening for malignant neoplasms of colon Medication List Medication Instructions Start Date Stop Date Generic Name NDC Status Provider Patient Instruction ADULT ASPIRIN EC LOW STRENGTH 81 MG ORAL TBEC 1 tab qd ASPIRIN 58612608227 Active William Holliday MD Active EQL ACID CALL CENTER DIRECTOR 150 MG ORAL TABS 1 tab qd. RANITIDINE HCL 04278298682 Active William Holliday MD Active TYLENOL CAPS 2 tabs daily. 1300 mg ACETAMINOPHEN CAPS 06449684048 Active William Holliday MD Active CALCIUM CITRATE-VITAMIN D TABS 1 tab daily. 1000 iu CALCIUM CITRATE-VITAMIN D TABS 44298190149 Active William Holliday MD Active COREG 12.5 MG ORAL TABS 2 tabs daily CARVEDILOL 75106822845 Active William Holliday MD Active SYNTHROID 75 MCG ORAL TABS 1 tab daily LEVOTHYROXINE SODIUM 82967694868 Active William Holliday MD Active LOSARTAN POTASSIUM TABS 1 tab daily. LOSARTAN POTASSIUM TABS 61230993273 Active William Holliday MD Active ATORVASTATIN CALCIUM 20 MG ORAL TABS 1 tab daily. ATORVASTATIN CALCIUM 25349902494 Active William Holliday MD Active Advance Directives Directive Description Start Date PERMISSION TO SHARE Vital Signs Date Name Value Unit Range Description blood pressure, diastolic - 8462-4 92 mm[Hg] BP kong blood pressure, systolic - 8480-6 132 mm[Hg] BP sys height E&M - 8302-2 73 [in_us] Bdy height pulse rate E&M - 8867-4 68 /min Heart rate temperature E&M 98 [degF] Body temperature weight E&M - 3141-9 235 [lb_av] Weight Measured height E&M - 8302-2 73 [in_us] Bdy height Procedures Code Procedure Name Date Entry Date Standard Description CPT-16457 No Charge Offi Visit 10:05:57 CDT
--- OUTSIDE RECORDS SUMMARY | 2018-09-07 13:41 | XMS REPORT | Clinical Summary ---
Author Author Admin, E Organization [facility] [employer] [place] Address Unknown Phone Unavailable Allergies, Adverse Reactions, [...] MG ORAL TBEC 1 tab qd ASPIRIN 39630716581 Active William Holliday MD Active EQL ACID CIGARETTE CATCHER 150 MG ORAL TABS 1 tab qd. RANITIDINE HCL 66168991757 Active William Holliday MD Active TYLENOL CAPS 2 tabs daily. 1300 mg ACETAMINOPHEN CAPS 11249168990 Active William Holliday MD Active CALCIUM CITRATE-VITAMIN D TABS 1 tab daily. 1000 iu CALCIUM CITRATE-VITAMIN D TABS 62829350580 Active William Holliday MD Active COREG 12.5 MG ORAL TABS 2 tabs daily CARVEDILOL 80402007093 Active William Holliday MD Active SYNTHROID 75 MCG ORAL TABS 1 tab daily LEVOTHYROXINE SODIUM 79822136647 Active William Holliday MD Active LOSARTAN POTASSIUM TABS 1 tab daily. LOSARTAN POTASSIUM TABS 38846003397 Active William Holliday MD Active ATORVASTATIN CALCIUM 20 MG ORAL TABS 1 tab daily. ATORVASTATIN CALCIUM 16018988444 Active William Holliday MD Active Advance Directives [...] Procedure Name Date Entry Date Standard Description CPT-61634 No Charge Offi Visit 10:05:57 CDT
--- OUTSIDE RECORDS SUMMARY | 2018-09-07 13:41 | XMS REPORT ---
Author Author MARNIE NGUYỄN [facility] [place] Address [address] [place] [address] Care Team Providers Care Benefit Authorizer Name Role Phone MARNIE NGUYỄN Unavailable PROBLEMS Type Condition ICD9-CM Code [id number] Code Onset Dates Condition Status SNOMED Code Problem Hypothyroidism (acquired) E03.9 Active 786662520 Problem Hyperlipidemia LDL goal <130 E78.5 Active 69749029 Problem Essential hypertension I10 Active 46323307 ALLERGIES No Known Allergies SOCIAL HISTORY No smoking Hx information available PLAN OF CARE VITAL SIGNS MEDICATIONS No Known Medications RESULTS No Results PROCEDURES No Known procedures IMMUNIZATIONS No Known Immunizations
--- OUTSIDE RECORDS SUMMARY | 2018-09-07 13:41 | XMS REPORT ---
Author Author [facility]N [facility] Address [address] [place] [address] Care Team Providers Care Veneer Stapler Name Role Phone MARNIE NGUYỄN Unavailable PROBLEMS Type Condition ICD9-CM Code [id number] Code Onset Dates Condition Status SNOMED Code Problem Hypothyroidism (acquired) E03.9 Active 161439922 Problem Hyperlipidemia LDL goal <130 E78.5 Active 83964821 Problem Essential hypertension I10 Active 97860113 ALLERGIES No Known Allergies SOCIAL HISTORY No smoking Hx information available PLAN OF CARE Activity Details Follow Up prn Reason: VITAL SIGNS MEDICATIONS No Known Medications RESULTS Name Result Date Reference Range [facility] 2016-12-22 Glucose, Serum 79 65-99 BUN 16 8-27 Creatinine, Serum 1.11 0.76-1.27 eGFR If NonAfricn Am 71 >59 eGFR If Africn Am 82 >59 BUN/Creatinine Ratio 14 10-22 Sodium, Serum 143 134-144 Potassium, Serum 4.2 3.5-5.2 Chloride, Serum 104 96-106 Carbon Dioxide, Total 23 18-29 Calcium, Serum 9.4 8.6-10.2 PROCEDURES Procedure Date Ordered Related Diagnosis Body Site BASIC METABOLIC PANEL Dec 22, 2016 VENIPUNCT, ROUTINE* Dec 22, 2016 IMMUNIZATIONS No Known Immunizations
--- OUTSIDE RECORDS SUMMARY | 2018-09-07 13:41 | XMS REPORT ---
Author ADITYA Mistry Organization [employer] Address Unknown Phone Unavailable Care Team Providers Care Parcel Post Carrier Name Role Phone ADITYA ARZATE CP Unavailable Allergies, Adverse Reactions, Alerts Substance Reaction Event Type N.K.D.A. Info Not Available Non Drug Allergy Problems Problem Type Condition Code Onset Dates Condition Status Assessment Seborrheic keratosis L82.1 Active Medications Medication Code System Code Instructions Start Date End Date Status Dosage Levothyroxine Sodium [facility] [address]-89 75 MCG Orally Once a day [address] [facility] [address]-65 500 UNIT/GM Externally twice a day Aug 29, 2015 1 application to affected area Atorvastatin Calcium [facility] [address]-65 20 MG Orally Once a day [address] [facility] [address]-53 10 MG Orally Once a day [address] [facility] [address]-65 12.5 MG Orally Twice a day 1 tablet with food Meloxicam [facility] [address]-94 15 MG Orally Once a day 1 tablet Procedures Procedure Coding System Code Date Office Visit, Est Pt., Level 3 CPT-4 21671 Aug 29, 2015 DESTRUCT LESION, 1-14 CPT-4 07104 Aug 29, 2015 Vital Signs Date/Time: Aug 29, 2015 Cardiac Monitoring Heart Rate 64 bpm Temperature 98.6 F Weight 231.6 lbs Blood Pressure Diastolic 80 mmHg Blood Pressure Systolic 146 mmHg Results No Known Results Summary Purpose [employer] Submission
--- OUTSIDE RECORDS SUMMARY | 2018-09-07 13:41 | XMS REPORT ---
Author MARNIE Nuñez Organization [employer] Address Unknown Phone Unavailable Care Team Providers Care Counter Top Assembler Name Role Phone MARNIE NGUYỄN CP Unavailable Allergies No Known Allergies Problems Problem Type Condition Code Onset Dates Condition Status Assessment Essential hypertension with goal blood pressure less than 140\/90 I10 Active Medications No Known Medications Procedures Procedure Coding System Code Date VENIPUNCT, ROUTINE* CPT-4 54657 April 22, 2016 BASIC METABOLIC PANEL CPT-4 16614 April 22, 2016 Results Name Result Date Reference Range Unit Abnormality Flag BMP ----Chloride, Serum 105 97852555 97-108 mmol/L ----Potassium, Serum 4.3 81469014 3.5-5.2 mmol/L ----Sodium, Serum 141 45260167 134-144 mmol/L ----BUN/Creatinine Ratio 17 [id number] 10-22 ----eGFR If Africn Am 68 [id number] >59 mL/min/1.73 ----Calcium, Serum 9.0 70781068 8.6-10.2 mg/dL ----Glucose, Serum 83 54156052 65-99 mg/dL ----Carbon Dioxide, Total 19 23056594 18-29 mmol/L ----BUN 22 04788948 8-27 mg/dL ----Creatinine, Serum 1.30 [id number] 0.76-1.27 mg/dL H ----eGFR If NonAfricn Am 58 [id number] >59 mL/min/1.73 L ROUTINE VENIPUNCTURE Summary Purpose eClinicalWorks Submission
--- OUTSIDE RECORDS SUMMARY | 2018-09-07 13:41 | XMS REPORT ---
Author Author [facility] Address [address] [place] [address] Care Team Providers Care Asian Studies Program Chair Name Role Phone MARNIE NGUYỄN Unavailable PROBLEMS Type Condition ICD9-CM Code QUY27-MS Code Onset Dates Condition Status SNOMED Code Problem Hypothyroidism (acquired) E03.9 Active 523329470 Problem Hyperlipidemia LDL goal <130 E78.5 Active 89798819 Problem Essential hypertension I10 Active 15348090 ALLERGIES No Known Allergies SOCIAL HISTORY No smoking Hx information available PLAN OF CARE VITAL SIGNS MEDICATIONS No Known Medications RESULTS No Results PROCEDURES No Known procedures IMMUNIZATIONS No Known Immunizations
--- OUTSIDE RECORDS SUMMARY | 2018-09-07 13:41 | XMS REPORT ---
Author MARNIE Nuñez Organization [employer] Address Unknown Phone Unavailable Care Team Providers Care Slurry Tank Operator Name Role Phone MARNIE NGUYỄN CP Unavailable Allergies, Adverse Reactions, Alerts Substance Reaction Event Type N.K.D.A. Info Not Available Non Drug Allergy Problems Problem Type Condition Code Onset Dates Condition Status Assessment Hyperlipidemia, unspecified hyperlipidemia type E78.5 Active Assessment Bilateral low back pain without sciatica M54.5 Active Assessment Essential hypertension I10 Active Assessment Skin lesion L98.9 Active Medications Medication Code System Code Instructions Start Date End Date Status Dosage Cyclobenzaprine HCl [facility] [address]-06 5 MG Orally Three times a day OctJan 19, 2016 1 tablet Atorvastatin Calcium [facility] 88871709473 20MG TAKE 1 TABLET DAILY AT BEDTIME (AVOID GRAPEFRUIT) Meloxicam [facility] [address]-47 15 MG Orally Once a day 1 tablet Levothyroxine Sodium [facility] [address]-83 75 MCG Orally Once a day 1 tablet Lisinopril [facility] [address]-54 20 MG Orally Once a day 1 tablet Carvedilol [facility] [address]-70 12.5 MG Orally Twice a day 1 tablet with food Procedures Procedure Coding System Code Date Office Visit, Est Pt., Level 4 CPT-4 13340 Nov 20, 2015 Vital Signs Date/Time: Nov 20, 2015 Temperature 97.7 F Weight 231.3 lbs Height 73 in BMI 30.51 Index Blood Pressure Diastolic 90 mmHg Blood Pressure Systolic 144 mmHg Cardiac Monitoring Heart Rate 72 bpm Results No Known Results Summary Purpose eClinicalWorks Submission
--- OUTSIDE RECORDS SUMMARY | 2018-09-07 13:41 | XMS REPORT ---
Author Author [facility] N[facility]N [facility] Address [address] [place] [address] Care Team Providers Care Barrel Coater Name Role Phone LUISAMARNIE CONNORS Unavailable PROBLEMS Type Condition ICD9-CM Code XTO82-KZ Code Onset Dates Condition Status SNOMED Code Problem Hypothyroidism (acquired) E03.9 Active 725836277 Problem Hyperlipidemia LDL goal <130 E78.5 Active 60481759 Problem Essential hypertension I10 Active 98694316 ALLERGIES Substance Reaction Event Type Date Status Hydrochlorothiazide rash Drug Allergy Dec, Active SOCIAL HISTORY Never Assessed PLAN OF CARE Activity Details Follow Up 1 Year Reason:med refill VITAL SIGNS Height 73 in 2017-01-13 Weight 229.4 lbs 2017-01-13 Temperature 98.3 degrees Fahrenheit 2017-01-13 Heart Rate 88 bpm 2017-01-13 Respiratory Rate 18 2017-01-13 BMI 30.26 kg/m2 2017-01-13 Blood pressure systolic 136 mmHg 2017-01-13 Blood pressure diastolic 84 mmHg 2017-01-13 MEDICATIONS Medication Instructions Dosage Frequency Start Date End Date Duration Status Flonase Allergy Relief 50 MCG/ACT Nasally Once a day 1 spray in each nostril 24h March, 30 day(s) Active Levothyroxine Sodium 75 mcg Orally Once a day 1 tablet 24h 90 days Active Losartan Potassium 100MG Orally Once a day 1 tablet 24h 90 days Active Carvedilol 12.5MG Orally Twice a day 1 tablet with food 12h 90 days Active Atorvastatin Calcium 20mg Take 1 tablet daily at bedtime. Avoid grapefruit & grapefruit products. 90 days Active RESULTS Name Result Date Reference Range TSH 2017-01-13 TSH 3.770 0.450-4.500 PROCEDURES Procedure Date Ordered Result Body Site ASSAY THYROID STIM HORMONE Jan 13, 2017 VENIPUNCT, ROUTINE* Jan 13, 2017 IMMUNIZATIONS No Known Immunizations MEDICAL (GENERAL) HISTORY Type Description Date Medical History Nevus Medical History Hypothyroidism Medical History Hyperlipidemia Medical History Hypertension Medical History Arthritis Surgical History left knee replacement Surgical History right knee replacement Hospitalization History Surgery(s) only
--- OUTSIDE RECORDS SUMMARY | 2018-09-07 13:41 | XMS REPORT ---
Author Author [facility]N [facility] Address [address] [place] [address] Care Team Providers Care Bull Float Finisher Name Role Phone MARNIE NGUYỄN Unavailable PROBLEMS Type Condition ICD9-CM Code NDY62-XT Code Onset Dates Condition Status SNOMED Code Problem Hypothyroidism (acquired) E03.9 Active 988842602 Problem Hyperlipidemia LDL goal <130 E78.5 Active 81431167 Problem Essential hypertension I10 Active 32207086 ALLERGIES No Known Allergies SOCIAL HISTORY No smoking Hx information available PLAN OF CARE VITAL SIGNS MEDICATIONS No Known Medications RESULTS No Results PROCEDURES No Known procedures IMMUNIZATIONS No Known Immunizations
--- OUTSIDE RECORDS SUMMARY | 2018-09-07 13:41 | XMS REPORT ---
Author YANG Beal Organization [employer] Address Unknown Phone Unavailable Care Team Providers Care Shell Trim Operator Name Role Phone YANG HALL CP Unavailable Allergies No Known Allergies Problems No Known Problems Medications Medication Code System Code Instructions Start Date End Date Status Dosage Meloxicam [facility] [address]-35 15 MG Orally Once a day 1 tablet Carvedilol [facility] [address]-25 12.5 MG Orally Twice a day 1 tablet with food Lisinopril-Hydrochlorothiazide [facility] [address]-48 20-12.5 MG Orally Once a day Dec 23, 2015 1 tablet Atorvastatin Calcium [facility] 40414381755 20MG Take 1 tablet daily at bedtime. Avoid grapefruit & grapefruit products. Results No Known Results Summary Purpose eClinicalWorks Submission
--- OUTSIDE RECORDS SUMMARY | 2018-09-07 13:42 | XMS REPORT | Clinical Summary ---
Author Author Admin, E Organization [facility] [employer] [place] Address Unknown Phone Unavailable Allergies, Adverse Reactions, [...] MG ORAL TBEC 1 tab qd ASPIRIN 92744076950 Active iWlliam Holliday MD Active EQL ACID WOOD REPATCHER 150 MG ORAL TABS 1 tab qd. RANITIDINE HCL 64252156195 Active William Holliday MD Active TYLENOL CAPS 2 tabs daily. 1300 mg ACETAMINOPHEN CAPS 51850285009 Active William Holliday MD Active CALCIUM CITRATE-VITAMIN D TABS 1 tab daily. 1000 iu CALCIUM CITRATE-VITAMIN D TABS 56663970486 Active William Holliday MD Active COREG 12.5 MG ORAL TABS 2 tabs daily CARVEDILOL 23395696279 Active William Holliday MD Active SYNTHROID 75 MCG ORAL TABS 1 tab daily LEVOTHYROXINE SODIUM 87683529941 Active William Holliday MD Active LOSARTAN POTASSIUM TABS 1 tab daily. LOSARTAN POTASSIUM TABS 05626312710 Active William Holliday MD Active ATORVASTATIN CALCIUM 20 MG ORAL TABS 1 tab daily. ATORVASTATIN CALCIUM 11860719328 Active William Holliday MD Active Advance Directives [...] Procedure Name Date Entry Date Standard Description CPT-52913 No Charge Offi Visit 10:05:57 CDT
--- OUTSIDE RECORDS SUMMARY | 2018-09-07 13:42 | XMS REPORT | Clinical Summary ---
Author Author Admin, [facility] Organization [facility] Address Unknown Phone Unavailable Allergies, Adverse Reactions, Alerts Allergy Name Reaction Description Start Date Severity Status Provider Allergies Unknown Conditions or Problems Problem Name Problem Code Onset Date Status Entry Date Provider Comment Standard Description Annotate Problems Unknown Active Medication List Medication Instructions Start Date Stop Date Generic Name NDC Status Provider Patient Instruction Drug Treatment Unknown - unknown Vital Signs Date Name Value Unit Range Description height E&M - 8302-2 73 [in_us] Bdy height
--- OUTSIDE RECORDS SUMMARY | 2018-09-07 13:42 | XMS REPORT | Clinical Summary ---
Author Author Admin, E Organization [facility] [employer] [place] Address Unknown Phone Unavailable Allergies, Adverse Reactions, [...] MG ORAL TBEC 1 tab qd ASPIRIN 00255266169 Active William Holliday MD Active EQL ACID BURR FILER 150 MG ORAL TABS 1 tab qd. RANITIDINE HCL 77310972553 Active William Holliday MD Active TYLENOL CAPS 2 tabs daily. 1300 mg ACETAMINOPHEN CAPS 64864945672 Active William Holliday MD Active CALCIUM CITRATE-VITAMIN D TABS 1 tab daily. 1000 iu CALCIUM CITRATE-VITAMIN D TABS 97797922922 Active William Holliday MD Active COREG 12.5 MG ORAL TABS 2 tabs daily CARVEDILOL 17848942040 Active William Holliday MD Active SYNTHROID 75 MCG ORAL TABS 1 tab daily LEVOTHYROXINE SODIUM 30993798084 Active William Holliday MD Active LOSARTAN POTASSIUM TABS 1 tab daily. LOSARTAN POTASSIUM TABS 36462636853 Active William Holliday MD Active ATORVASTATIN CALCIUM 20 MG ORAL TABS 1 tab daily. ATORVASTATIN CALCIUM 86496623277 Active William Holliday MD Active Advance Directives [...] Procedure Name Date Entry Date Standard Description CPT-47866 No Charge Offi Visit 10:05:57 CDT
--- OUTSIDE RECORDS SUMMARY | 2018-09-07 13:42 | XMS REPORT | Clinical Summary ---
Author Author Admin, E Organization [facility] Address Unknown Phone Unavailable Allergies, Adverse Reactions, [...] MG ORAL TBEC 1 tab qd ASPIRIN 63684503690 Active William Holliday MD Active EQL ACID MICA LAYER 150 MG ORAL TABS 1 tab qd. RANITIDINE HCL 12318465113 Active William Holliday MD Active TYLENOL CAPS 2 tabs daily. 1300 mg ACETAMINOPHEN CAPS 61672444168 Active William Holliday MD Active CALCIUM CITRATE-VITAMIN D TABS 1 tab daily. 1000 iu CALCIUM CITRATE-VITAMIN D TABS 48410158123 Active William Holliday MD Active COREG 12.5 MG ORAL TABS 2 tabs daily CARVEDILOL 68665545414 Active William Holliday MD Active SYNTHROID 75 MCG ORAL TABS 1 tab daily LEVOTHYROXINE SODIUM 31020727100 Active William Holliday MD Active LOSARTAN POTASSIUM TABS 1 tab daily. LOSARTAN POTASSIUM TABS 83229653939 Active William Holliday MD Active ATORVASTATIN CALCIUM 20 MG ORAL TABS 1 tab daily. ATORVASTATIN CALCIUM 26217929355 Active William Holliday MD Active Vital Signs Date Name Value Unit Range [...] Procedure Name Date Entry Date Standard Description CPT-37234 No Charge Offi Visit 10:05:57 CDT
--- OUTSIDE RECORDS SUMMARY | 2018-09-07 13:42 | XMS REPORT | Clinical Summary ---
Author Author Admin, E Organization [facility] [employer] [place] Address Unknown Phone Unavailable Allergies, Adverse Reactions, [...] MG ORAL TBEC 1 tab qd ASPIRIN 33739181510 Active William Holliday MD Active EQL ACID TELEGRAPH MECHANIC 150 MG ORAL TABS 1 tab qd. RANITIDINE HCL 29006210412 Active William Holliday MD Active TYLENOL CAPS 2 tabs daily. 1300 mg ACETAMINOPHEN CAPS 64484882834 Active William Holliday MD Active CALCIUM CITRATE-VITAMIN D TABS 1 tab daily. 1000 iu CALCIUM CITRATE-VITAMIN D TABS 73722383292 Active William Holliday MD Active COREG 12.5 MG ORAL TABS 2 tabs daily CARVEDILOL 26211317046 Active William Holliday MD Active SYNTHROID 75 MCG ORAL TABS 1 tab daily LEVOTHYROXINE SODIUM 44880255900 Active William Holliday MD Active LOSARTAN POTASSIUM TABS 1 tab daily. LOSARTAN POTASSIUM TABS 13308739932 Active William Holliday MD Active ATORVASTATIN CALCIUM 20 MG ORAL TABS 1 tab daily. ATORVASTATIN CALCIUM 74985632934 Active William Holliday MD Active Vital Signs [...] Procedure Name Date Entry Date Standard Description CPT-75259 No Charge Offi Visit 10:05:57 CDT
--- OUTSIDE RECORDS SUMMARY | 2018-09-07 13:42 | XMS REPORT | Continuity of Care Document ---
Author Author [facility] Address Unknown Phone Unavailable Allergies Active Description Code Type Severity Reaction Onset Reported/Identified Relationship to Patient Clinical Status Yes NO KNOWN DRUG ALLERGIES UNKNOWN NO KNOWN DRUG ALLERG Medications Medication Packaging Start Date Stop Date Route Dosage Sig NORMAL SALINE 1000CC IV BAG INJ 0.9 % (NS 1000CC IV BAG) ml 09/07/2018 09/22/2018 CONTINUOUSEVERY 0 Hour Problems Date Dx Coded Attending Type Code Diagnosis Diagnosed By 03/04/2015 TITO VU, SETH Jensen 724.2 BACK PAIN, LOWER Procedures Code Description Performed By Performed On [facility] 03/04/2015 27379 MRI SPINE (LUMBAR) W/O CONTRAST 03/08/2015 Results Test Result Range [facility] - 01/18/18 16:41 GLUCOSE 74 mg/dL 65-99 UREA NITROGEN (BUN) 19 mg/dL 7-25 CREATININE 1.02 mg/dL 0.70-1.25 eGFR NON-AFR. MICRONESIAN 78 mL/min/1.73m2 > OR=60 eGFR 90 mL/min/1.73m2 > OR=60 BUN/CREATININE RATIO NOT APPLICABLE (calc) 6-22 SODIUM 140 mmol/L 135-146 POTASSIUM 4.0 mmol/L 3.5-5.3 CHLORIDE 106 mmol/L 98-110 CARBON DIOXIDE 27 mmol/L 20-31 CALCIUM 8.9 mg/dL 8.6-10.3 PROTEIN, TOTAL 6.5 g/dL 6.1-8.1 ALBUMIN 4.0 g/dL 3.6-5.1 GLOBULIN 2.5 g/dL (calc) 1.9-3.7 ALBUMIN/GLOBULIN RATIO 1.6 (calc) 1.0-2.5 BILIRUBIN, TOTAL 0.8 mg/dL 0.2-1.2 ALKALINE PHOSPHATASE 48 U/L 40-115 AST 27 U/L 10-35 ALT 40 U/L 9-46 CBC - 01/18/18 16:41 WHITE BLOOD CELL COUNT 6.3 Thousand/uL 3.8-10.8 RED BLOOD CELL COUNT 4.82 Million/uL 4.20-5.80 HEMOGLOBIN 14.5 g/dL 13.2-17.1 HEMATOCRIT 41.6 % 38.5-50.0 MCV 86.3 fL 80.0-100.0 MCH 30.1 pg 27.0-33.0 MCHC 34.9 g/dL 32.0-36.0 RDW 13.9 % 11.0-15.0 PLATELET COUNT 162 Thousand/uL 140-400 MPV 10.6 fL 7.5-12.5 ABSOLUTE NEUTROPHILS 2306 cells/uL 2278-0259 ABSOLUTE LYMPHOCYTES 2665 cells/uL 850-3900 ABSOLUTE MONOCYTES 529 cells/uL 200-950 ABSOLUTE EOSINOPHILS 737 cells/uL 15-500 ABSOLUTE BASOPHILS 63 cells/uL 0-200 NEUTROPHILS 36.6 % NRG LYMPHOCYTES 42.3 % NRG MONOCYTES 8.4 % NRG EOSINOPHILS 11.7 % NRG BASOPHILS 1.0 % NRG LIPID PANEL - 06/17/18 13:44 CHOLESTEROL, TOTAL 122 mg/dL <200 HDL CHOLESTEROL 42 mg/dL >40 TRIGLYCERIDES 53 mg/dL <150 LDL-CHOLESTEROL 67 mg/dL (calc) NRG CHOL/HDLC RATIO 2.9 (calc) <5.0 NON HDL CHOLESTEROL 80 mg/dL (calc) <130 Urinalysis - 09/05/18 11:05 Icotest N/A Negative Urine Volume Urine Volume Sufficient (10mL) Urine-Appearance Clear Clear Urine-Bacteria Trace Urine-Bilirubin Negative Negative Urine-Blood Negative Negative Urine-Color Yellow Colorless-Lt. Yellow Urine-Epithelial Cells 0-5/HPF Urine-Glucose Negative Negative Urine-Ketones Negative Negative Urine-Leukocytes Negative Negative Urine-Nitrite Negative Negative Urine-pH 6.0 5-8.5 Urine-Protein Negative Negative Urine-RBC Negative Urine-Specific [place] 1.020 1.000-1.030 Urine-WBC Negative Urobilinogen 1.0 E.U./dL 0.2-1.0 Comprehensive Metabolic Panel - 09/05/18 11:06 Albumin 4.0 g/dL 3.6-5.1 ALP 51 U/L 35-130 ALT 39 U/L 6-45 Anion Gap 14 6-14 AST 27 U/L 2-40 BUN 35 mg/dL 5-25 Calcium 9.6 mg/dL 8.3-10.4 Chloride 108 mmol/L 95-114 CO2 24 mEq/L 22-33 Creat 1.56 mg/dL 0.50-1.50 eGFR 45 mL/min/1.73m2 >59 Globulin 2.7 g/dL 2.3-3.5 Glucose 95 mg/dL 70-110 Osmo 300 280-295 Potassium 4.4 mmol/L 3.5-5.3 Sodium 142 mmol/L 134-148 TBil 0.7 mg/dL 0.2-1.2 TP 6.7 g/dL 6.0-8.3 Encounters ACCT No. Visit Date/Time Discharge Status Pt. Type Provider Facility Loc./Unit Complaint [id number] 03/04/2015 15:55:00 03/04/2015 23:59:59 CLS Outpatient TITO VU, SETH [place] [id number] 03/31/2017 19:09:16 ACT Document Registration [id number] 03/29/2017 11:27:02 ACT Unknown [id number] 07/16/2015 15:49:37 07/16/2015 15:49:37 DIS Unknown [id number] 06/17/2018 09:00:00 06/17/2018 23:59:59 CLS Outpatient LUISAWAYLONMARNIE [facility] [id number] [place] [id number] 06/17/2018 09:00:00 Document Registration [id number] 01/18/2018 14:40:00 Document Registration [id number] 08/30/2018 10:58:00 08/30/2018 23:59:00 DIS Outpatient KATIA LAWS [id number] 09/05/2018 13:36:54 Document Registration [id number] 09/05/2018 13:20:41 Document Registration [id number] 09/05/2018 10:43:00 Document Registration
--- OUTSIDE RECORDS SUMMARY | 2018-09-07 13:42 | XMS REPORT | Clinical Summary ---
Author Author Admin, E Organization [facility] [employer] [place] Address Unknown Phone Unavailable Allergies, Adverse Reactions, [...] MG ORAL TBEC 1 tab qd ASPIRIN 49365918897 Active William Holliday MD Active EQL ACID PYROMETER MECHANIC 150 MG ORAL TABS 1 tab qd. RANITIDINE HCL 03792810194 Active William Holliday MD Active TYLENOL CAPS 2 tabs daily. 1300 mg ACETAMINOPHEN CAPS 71138683181 Active William Holliday MD Active CALCIUM CITRATE-VITAMIN D TABS 1 tab daily. 1000 iu CALCIUM CITRATE-VITAMIN D TABS 85058617104 Active William Holliday MD Active COREG 12.5 MG ORAL TABS 2 tabs daily CARVEDILOL 92283925512 Active William Holliday MD Active SYNTHROID 75 MCG ORAL TABS 1 tab daily LEVOTHYROXINE SODIUM 93059774194 Active William Holliday MD Active LOSARTAN POTASSIUM TABS 1 tab daily. LOSARTAN POTASSIUM TABS 87813972872 Active William Holliday MD Active ATORVASTATIN CALCIUM 20 MG ORAL TABS 1 tab daily. ATORVASTATIN CALCIUM 50982286397 Active William Holliday MD Active Vital Signs [...] Procedure Name Date Entry Date Standard Description CPT-58518 No Charge Offi Visit 10:05:57 CDT
[2018-09-07] MEDS ORDERED: oxyCODONE/APAP 5/325MG (PERCOCET 5) TABLET ONE (14:10)
[2018-09-07] MEDS ORDERED: NS IV 1000 ML 1,000 ML ONE (14:10)
[2018-09-07] MEDS ORDERED: CATHETER FLUSH 10 ML SYR IV PRN (14:15)
[2018-09-07] MEDS: NS IV 1000 ML 1,000 ML IV SCH (14:21)
[2018-09-07] MEDS: oxyCODONE/APAP 5/325MG (PERCOCET 5) TABLET PO PRN ×2 (14:22→22:02)
[2018-09-07 14:28] LABS: HEMOGLOBIN 12.6 G/DL (13.3-17.7); MEAN PLATELET VOLUME 10.6 FL (7.4-10.4); RED BLOOD COUNT 4.12 10^6/uL (4.35-5.85); RED CELL DISTRIBUTION WIDTH 13.8 % (10.0-14.5); WHITE BLOOD COUNT 7.3 10^3/uL (4.3-11.0)
[2018-09-07 14:54] LABS: ALBUMIN 3.5 GM/DL (3.2-4.5); BILIRUBIN,TOTAL 0.7 MG/DL (0.1-1.0); CALCIUM 8.4 MG/DL (8.5-10.1); CREATININE SERUM 1.33 MG/DL (0.60-1.30); MAGNESIUM 1.5 MG/DL (1.8-2.4); POTASSIUM 3.9 MMOL/L (3.6-5.0); TOTAL PROTEIN 5.9 GM/DL (6.4-8.2)
[2018-09-07] MEDS ORDERED: FLU QUADRIvalent (5+ YOA) 2018-2019 (AFLURIA) 0.5 ML IM ONE (15:00)
--- NOTE | 2018-09-07 17:07 | Cardiology History & Physical ---
HPI-Cardiology Cardiology H&P Date of Admission 09/07/18 Primary Care Physician Elmer Suggs MD Attending Physician Pedro Rodriguez MD, MA [facility] Consulting Physician LI 63 yo man who underwent arthroscopic knee surgery at the [facility] and developed bradycardia and hypotension when under anesthesia. Required brief chest compressions, apparently for profound bradycardia. Did not have asystole or VT or VF. Surgery was brief and had been completed before this event. He was treated with iv epi and with iv fluids and bp and heart rate improved. Was transferred to us for further eval. Denies cp or palp or syncope or shortness of breath Review of Systems-Cardiology Review of Systems Constitutional: No malaise, No weight loss, No other Eyes: No vision change Ears/Nose/Throat: No ear discharge, No nasal drainage Respiratory: As described under HPI Cardiovascular: As described under HPI Gastrointestinal: No constipation, No diarrhea, No nausea, No vomiting Genitourinary: No dysuria, No hematuria, No urine frequency changes Musculoskeletal: back pain (chronic), joint pain (chronic) Skin: No rash, No ulcerations Psychiatric/Neurological: No seizure, No focal weakness, No syncope Hematologic: No bleeding abnormalities ZJB-[id number]-[id number] Hx Patient Social History Alcohol Use: Occasionally Uses Recreational Drug Use: No Smoking Status: Never a Smoker Recent Foreign Travel: No Recent Infectious Disease Expo: No Hospitalization with Isolation: Denies Physical Abuse Screen: No Sexual Abuse: No Past Medical History PMH As described under Assessment. Family Medical History Family History: FH: CAD (coronary artery disease) 19 FATHER G8 BROTHER FH: brain tumor 19 MOTHER, Onset:40's - 50 FH: pancreatic cancer G8 BROTHER Myocardial infarction 19 FATHER G8 BROTHER Allergies and Home Medications Allergies Coded Allergies: No Known Drug Allergies (Unverified , 09/07/18) Patient Home Medication List Home Medication List Reviewed: Yes Physical Exam-Cardiology Physical Exam Vital Signs/I&O 09/07/18 13:19 Pulse 79 Capillary Refill : Constitutional: AAO x 3, well-developed, well-nourished HEENT: EOMI, hearing is well preserved; No xanthelasmas are seen Neck: No carotid bruit; carotid pulses are 2 + bilaterally, with good upstrokes Respiratory: No accessory muscle use; lungs clear to percussion, lungs clear to auscultation Cardiovascular: No regular rate-rhythm; S1 and S2, systolic murmur (soft SONIDO at card base) Gastrointestinal: No tender; soft; No guarding, No rebound; audible bowel sounds Extremities: other (swelling at site of surgery on the knee); No clubbing, No cyanosis, No significant edema Neurologic/Psychiatric: oriented x 3, grossly intact, power is 5/5 both on sides Skin: No rash on exposed areas, No ulcerations on exposed areas Data Review Labs Laboratory Tests 09/07/18 14:17: White Blood Count 7.3, Red Blood Count 4.12L, Hemoglobin 12.6L, Hematocrit 37L, Mean Corpuscular Volume 90, Mean Corpuscular Hemoglobin 31, Mean Corpuscular Hemoglobin Concent 34, Red Cell Distribution Width 13.8, Platelet Count 145, Mean Platelet Volume 10.6H, Sodium Level 141, Potassium Level 3.9, Chloride Level 114H, Carbon Dioxide Level 20L, Anion Gap 7, Blood Urea Nitrogen 26H, Creatinine 1.33H, Estimat Glomerular Filtration Rate 54, BUN/Creatinine Ratio 20 , Glucose Level 108H, Calcium Level 8.4L, Corrected Calcium 8.8, Magnesium Level 1.5L, Total Bilirubin 0.7, Aspartate Amino Transf (AST/SGOT) 24, Alanine Aminotransferase (ALT/SGPT) 36, Alkaline Phosphatase 46, Total Protein 5.9L, Albumin 3.5, Thyroid Stimulating Hormone (TSH) 1.87 Laboratory Tests 09/07/18 14:17 ECG Impression ECG Comment ECG on 09/07/18 upon arrival to this hosp: NSR, WNL A/P-Cardiology Assessment/Admission Diagnosis Episode of bradycardia and hypotension during arthroscopic knee surgery under anesthesia H/o hypertension H/o CAD as indicated by cor calcium on a cor calcium scan (score unknown, followed by his distribution accounting clerk in ) H/o a recent stress that he was told was normal (details unknown; administered by his distribution accounting clerk in ) DJD. S/p R knee arthroscopic surgery Admission Status: Observation Discussion and Recomendations * Tele * Serial ECGs * Cardiac enzymes * Replenish Mg * I spoke with Dr Cade (transferring physician) in detail * I spoke with the pt and his in detail PEDRO RODRIGUEZ [facility] Sep 07, 2018 17:07
[2018-09-07] MEDS: MAGNESIUM 1 GM/100 ML IVPB 100 ML IV SCH ×2 (17:50→18:54)
[2018-09-07] MEDS ORDERED: CLOPIDOGREL 75 MG (PLAVIX) TABLET PO NR (19:30)
[2018-09-07] MEDS: ATORVASTATIN 40 MG (LIPITOR) TABLET PO SCH (20:46)
[2018-09-07] MEDS: ENOXAPARIN 100 MG/1 ML (LOVENOX) SYR SC SCH (20:46)
[2018-09-08] VITALS (24 sets, daily range): BP systolic 90–140; BP diastolic 47–81
[2018-09-08] MEDS: NS IV 1000 ML 1,000 ML IV SCH ×3 (00:32→17:01)
[2018-09-08 04:01] LABS: BASOPHILS % (AUTO) 0 % (0-10); EOSINOPHILS % (AUTO) 0 % (0-10); HEMATOCRIT 34 % (40-54); HEMOGLOBIN 11.7 G/DL (13.3-17.7); LYMPHOCYTES # (AUTO) 1.7 X 10^3 (1.0-4.0); LYMPHOCYTES % (AUTO) 17 % (12-44); MEAN CORPUSCULAR HEMOGLOBIN 32 PG (25-34); MEAN CORPUSCULAR HGB CONC 34 G/DL (32-36); MEAN CORPUSCULAR VOLUME 92 FL (80-99); MEAN PLATELET VOLUME 11.4 FL (7.4-10.4); MONOCYTES # (AUTO) 0.5 X 10^3 (0.0-1.0); MONOCYTES % (AUTO) 5 % (0-12); NEUTROPHILS # (AUTO) 7.9 X 10^3 (1.8-7.8); NEUTROPHILS % (AUTO) 78 % (42-75); PLATELET COUNT 139 10^3/uL (130-400); RED BLOOD COUNT 3.71 10^6/uL (4.35-5.85); RED CELL DISTRIBUTION WIDTH 13.7 % (10.0-14.5)
[2018-09-08 04:25] LABS: ALBUMIN 3.1 GM/DL (3.2-4.5); BILIRUBIN,TOTAL 0.4 MG/DL (0.1-1.0); CALCIUM 7.9 MG/DL (8.5-10.1); CREATININE SERUM 1.37 MG/DL (0.60-1.30); MAGNESIUM 2.4 MG/DL (1.8-2.4); POTASSIUM 4.2 MMOL/L (3.6-5.0); TOTAL PROTEIN 5.2 GM/DL (6.4-8.2)
[2018-09-08] MEDS: MAGNESIUM 1 GM/100 ML IVPB 100 ML IV SCH (05:22)
[2018-09-08] MEDS: POTASSIUM CL 10MEQ/50ML IVPB 50 ML IV SCH (05:22)
[2018-09-08] MEDS: KCL 20 MEQ TAB (K-DUR) PO SCH (05:22)
[2018-09-08] MEDS: oxyCODONE/APAP 5/325MG (PERCOCET 5) TABLET PO PRN ×3 (07:26→21:14)
[2018-09-08] MEDS ORDERED: SODIUM BICARBONATE 8.4% VIAL 100 MEQ in 1/2 NS IV SOLUTION 1,000 ML IV SCH (08:45)
--- NOTE | 2018-09-08 08:45 | Progress Note-Cardiology ---
Cardiology SOAP Progress Note Subjective: No cp or palp or syncope or shortness of breath Objective: I&O/Vital Signs 09/08/18 09/08/18 09/08/18 09/08/18 00:00 00:00 00:00 00:11 Temp 98.9 Pulse 75 75 Resp 14 14 B/P (MAP) 98/57 (71) 98/57 (71) Pulse Ox 94 97 94 O2 Delivery Room Air Room Air Room Air 09/08/18 09/08/18 09/08/18 09/08/18 01:00 01:00 02:00 03:00 Pulse 74 77 69 65 Resp 16 12 14 B/P (MAP) 106/62 (77) 91/47 (62) 104/57 (73) Pulse Ox 94 95 94 O2 Delivery Room Air Room Air 09/08/18 09/08/18 09/08/18 09/08/18 04:00 04:00 04:00 05:00 Temp 98.8 Pulse 64 63 Resp 10 11 B/P (MAP) 90/47 (61) 100/59 (73) Pulse Ox 96 93 96 O2 Delivery Room Air Room Air Room Air 09/08/18 09/08/18 09/08/18 06:00 07:00 08:00 Pulse 63 72 Resp 16 B/P (MAP) 102/66 (78) Pulse Ox 95 O2 Delivery Room Air Room Air 09/08/18 00:00 Intake Total 860 ml Output Total 1800 ml Balance -940 ml Weight (Pounds): 240 Weight (Ounces): 2.0 Weight (Calculated Kilograms): 108.589436 Constitutional: AAO x 3, well-developed, well-nourished Respiratory: No accessory muscle use; lungs clear to percussion, lungs clear to auscultation Cardiovascular: No regular rate-rhythm; S1 and S2, systolic murmur (soft SONIDO at card base) Gastrointestional: No tender; soft; No guarding, No rebound; audible bowel sounds Extremities: other (swelling at site of surgery on the knee); No clubbing, No cyanosis, No significant edema Neurologic/Psychiatric: oriented x 3, grossly intact, power is 5/5 both on sides Skin: No rash on exposed areas, No ulcerations on exposed areas Results/Procedures: Labs Laboratory Tests 09/07/18 14:17: White Blood Count 7.3, Red Blood Count 4.12L, Hemoglobin 12.6L, Hematocrit 37L, Mean Corpuscular Volume 90, Mean Corpuscular Hemoglobin 31, Mean Corpuscular Hemoglobin Concent 34, Red Cell Distribution Width 13.8, Platelet Count 145, Mean Platelet Volume 10.6H, Sodium Level 141, Potassium Level 3.9, Chloride Level 114H, Carbon Dioxide Level 20L, Anion Gap 7, Blood Urea Nitrogen 26H, Creatinine 1.33H, Estimat Glomerular Filtration Rate 54, BUN/Creatinine Ratio 20 , Glucose Level 108H, Calcium Level 8.4L, Corrected Calcium 8.8, Magnesium Level 1.5L, Total Bilirubin 0.7, Aspartate Amino Transf (AST/SGOT) 24, Alanine Aminotransferase (ALT/SGPT) 36, Alkaline Phosphatase 46, Troponin I 0.51*H, Total Protein 5.9L, Albumin 3.5, Thyroid Stimulating Hormone (TSH) 1.87 09/08/18 03:05: White Blood Count 10.0, Red Blood Count 3.71L, Hemoglobin 11.7L, Hematocrit 34L , Mean Corpuscular Volume 92, Mean Corpuscular Hemoglobin 32, Mean Corpuscular Hemoglobin Concent 34, Red Cell Distribution Width 13.7, Platelet Count 139, Mean Platelet Volume 11.4H, Sodium Level 139, Potassium Level 4.2, Chloride Level 114H, Carbon Dioxide Level 16L, Anion Gap 9, Blood Urea Nitrogen 27H, Creatinine 1.37H, Estimat Glomerular Filtration Rate 52, BUN/Creatinine Ratio 20 , Glucose Level 121H, Calcium Level 7.9L, Corrected Calcium 8.6, Magnesium Level 2.4, Total Bilirubin 0.4, Aspartate Amino Transf (AST/SGOT) 20, Alanine Aminotransferase (ALT/SGPT) 30, Alkaline Phosphatase 41, Troponin I 0.32*H, Total Protein 5.2L, Albumin 3.1L, Neutrophils (%) (Auto) 78H, Lymphocytes (%) ( Auto) 17, Monocytes (%) (Auto) 5, Eosinophils (%) (Auto) 0, Basophils (%) (Auto ) 0, Neutrophils # (Auto) 7.9H, Lymphocytes # (Auto) 1.7, Monocytes # (Auto) 0.5 , Eosinophils # (Auto) 0.0, Basophils # (Auto) 0.0 A/P: Assessment: Episode of bradycardia and hypotension during arthroscopic knee surgery under anesthesia on 09/07/18 Mildly elevated troponin, suspect small NSTEMI Pt not suitable for beta-elieser or LATONYA-inhib/ARB (due to presentation with bradycardia and hypotension) Impaired fasting glucose vs borderline DM II CKD-2 (possibly related to diabetic nephropathy) Obesity with BMI approx 32 H/o hypertension H/o CAD as indicated by cor calcium on a cor calcium scan (score unknown, followed by his body maker machine setter in ) H/o a recent stress that he was told was normal (details unknown; administered by his body maker machine setter in ) DJD. S/p R knee arthroscopic surgery Plan: * Given elevated troponin, NSTEMI is a strong consideration. Transient ischemia may have accounted for yesterday's events * We have recommended card cath * We discussed in detail the procedure, risks, benefits, potential complications , and alternatives of card cath and possible ad hoc cor intervention. We discussed his additional risk for contrast nephropathy because he has nephropathy at baseline. He understands and wishes to discuss with his family before making up his min RACHELLE PAYAN MD FACP FAC CCDS Sep 08, 2018 08:45
[2018-09-08] MEDS: ASPIRIN 81 MG CHEW (CHILDREN'S ASA) PO SCH (09:09)
[2018-09-08] MEDS: ENOXAPARIN 100 MG/1 ML (LOVENOX) SYR SC SCH (09:10)
[2018-09-08] MEDS ORDERED: CHOL10007 PO (11:05)
[2018-09-08] MEDS ORDERED: NAPR220T66 PO (11:05)
[2018-09-08] MEDS ORDERED: LEVO75TA PO (11:05)
[2018-09-08] MEDS ORDERED: CARV25TA PO (11:05)
[2018-09-08] MEDS ORDERED: AMLO2.5T3 PO (11:05)
[2018-09-08] MEDS ORDERED: RANI150T11 PO (11:05)
[2018-09-08] MEDS ORDERED: ATOR40TA70 PO (11:05)
[2018-09-08] MEDS ORDERED: ASPI-983 PO (11:05)
[2018-09-08] MEDS ORDERED: LOSA100T8 PO (11:05)
[2018-09-08] MEDS ORDERED: LORA10TA7 PO (11:05)
[2018-09-08] MEDS ORDERED: MIDAZOLAM 5 MG/5 ML (VERSED) VIAL ONE (14:10)
[2018-09-08] MEDS ORDERED: fentaNYL INJECTION 100 MCG/2 ML AMP ONE (14:10)
[2018-09-08] MEDS ORDERED: HEParin 1000 UNIT/ML (10ML VIAL) FOR BOLUS ONE (14:10)
[2018-09-08] MEDS ORDERED: HEParin (CATH LAB) 2,000 ML IV ONE (14:14)
[2018-09-08] MEDS ORDERED: LIDOCAINE 1% INJ 20 ML 20 ML VIAL ONE (14:14)
[2018-09-08] MEDS ORDERED: NS IV 1000 ML 1,000 ML ONE (14:29)
[2018-09-08] MEDS ORDERED: EPTIFIBATIDE BOLUS 20 ML IV ONE (14:54)
[2018-09-08] MEDS ORDERED: niCARdipine 25 MG/10 ML (CARDENE) AMP IV ONE (14:59)
[2018-09-08] MEDS ORDERED: NS (IVPB) 250 ML ONE (15:00)
[2018-09-08] MEDS ORDERED: NITRO DRIP 25000 MCG/D5W 0 ML IV ONE (15:02)
[2018-09-08] MEDS ORDERED: ATROPINE INJECTION 1 MG/10 ML SYR (ABBOTT) ONE (15:11)
[2018-09-08] MEDS ORDERED: EPINEPHrine 0.1 MG/ML 10 ML (HOSPIRA) SYR ONE (15:11)
[2018-09-08] MEDS ORDERED: ASPIRIN 81 MG CHEW (CHILDREN'S ASA) ONE (15:34)
[2018-09-08] MEDS ORDERED: CLOPIDOGREL 300 MG (PLAVIX) TABLET PO ONE (15:34)
--- NOTE | 2018-09-08 15:58 | Cardiology Discharge Summary ---
Diagnosis/Chief Complaint Date of Admission Sep 07, 2018 at 13:15 Date of Discharge 09/09/18 Final/Discharge Diagnosis Episode of bradycardia and hypotension during arthroscopic knee surgery of 09/07, likely due to transient cor ischemia and small NSTEMI Card cath of 09/08/18: 95% prox LAD stenosis treated with Earline 3x23 stent, post-dilated with 3.5x12 non-compliant balloon. The rest of the cors have mild disease. LVEDP is 14 mmHg Echo of 09/07/18: LVEF 55-60%, no RWMA, PASP WNL Impaired fasting glucose vs borderline DM II CKD-2 (possibly related to diabetic nephropathy) Obesity with BMI approx 32 H/o hypertension DJD. S/p R knee arthroscopic surgery on 09/07/18 Mild anemia after arthroscopic surgery (likely to perioperative blood loss and vigorous perioperative hydration) Chief Complaint/HPI Chief Complaint/HPI 63 yo man who underwent arthroscopic knee surgery at the [facility] and developed bradycardia and hypotension when under anesthesia. Required brief chest compressions, apparently for profound bradycardia. Did not have asystole or VT or VF. Surgery was brief and had been completed before this event. He was treated with iv epi and with iv fluids and bp and heart rate improved. Was transferred to us for further eval. Denies cp or palp or syncope or shortness of breath Troponin elevated. Raising suspicion of NSTEMI and cor ischemia as the cause of perioperative event of 09/07/18 Card cath on 09/08/18 after vigorous preop and periop hydration to prevent contrast nephropathy and after informed consent. See cath report Discharge Summary Discussion & Recommendations Home Medications Reviewed patient Home Medication Reconciliation performed by pharmacy medication reconciliations i&c technician and/or nursing. Patients Allergies have been reviewed. Discharge Home Medications: Reviewed and agree with Discharge Medication list on patient's Discharge Instruction sheet Clinical Quality Measures DVT/VTE Risk/Contraindication: Risk Factor Score Per Nursin RFS Level Per Nursing on Admit: 3=High RACHELLE PAYAN MD FACP FAC CCDS Sep 08, 2018 15:58
[2018-09-08] MEDS ORDERED: PATIENT MAY USE OWN MEDS, ALL PO SCH (16:00)
[2018-09-08] MEDS ORDERED: ASPI-999 PO (16:02)
[2018-09-08] MEDS ORDERED: METO-387 PO (16:02)
[2018-09-08] MEDS ORDERED: CLOP75TA28 PO (16:05)
--- NOTE | 2018-09-08 16:06 | Discharge Inst-Cardiology ---
Discharge Inst-Cardiac Discharge Medications New Medications: Aspirin (Aspirin) 81 Mg Tab.chew 81 MG PO DAILY, #30 TAB 2 Refills Clopidogrel Bisulfate (Clopidogrel) 75 Mg Tablet 75 MG PO DAILY for 30 Days, #30 TAB 2 Refills Metoprolol Succinate (Metoprolol Succinate) 25 Mg Tab.er.24h 25 MG PO DAILY for 30 Days, #30 TAB 2 Refills Continued Medications: Atorvastatin Calcium (Atorvastatin Calcium) 40 Mg Tablet 20 MG PO HS, TAB TAKES 1/2 (40MG) TABLET Cholecalciferol (Vitamin D3) (Vitamin D3) 1,000 Unit Capsule 1000 UNIT PO DAILY, CAP Levothyroxine Sodium (Synthroid) 75 Mcg Tablet 75 MCG PO DAILY, TAB Loratadine (Loratadine) 10 Mg Tablet 10 MG PO DAILY, TAB Ranitidine HCl (Ranitidine HCl) 150 Mg Tablet 150 MG PO HS, TAB Discontinued Medications: Amlodipine Besylate (Amlodipine Besylate) 2.5 Mg Tablet 2.5 MG PO HS, TAB Aspirin (Aspirin EC) 81 Mg Tablet.dr 81 MG PO HS, TAB Carvedilol (Carvedilol) 25 Mg Tablet 25 MG PO BID, TAB Losartan Potassium (Losartan Potassium) 100 Mg Tablet 100 MG PO HS, TAB Naproxen Sodium (Aleve) 220 Mg Tablet 440 MG PO BID, TAB RACHELLE PAYAN MD FACP FAC CCDS Sep 08, 2018 16:05
--- NOTE | 2018-09-08 16:06 | Discharge Inst-Post CATH ---
Discharge Inst-CATH Post Cardiac Cath D/C Inst Follow Up/Plan F/u with Cardiology within 1-2 weeks CARDIAC CATH DISCHARGE INSTRUCTIONS *Hold Metformin for 48 hours post heart cath. ACTIVITY * Go Home directly and rest. * Limit activity of the leg (or wrist if it was used) for 7 days including aerobics, swimming, jogging, bicycling, etc. * Restrict stair-climbing for 7 days if possible, if not, climb up with your non -cath leg, then bring together on the same step. * Avoid lifting, pushing, pulling or excessive movement of the affected extremity for 7 days. * Customary sexual activity may be resumed after 2 days-use caution not to use a position that strains or causes pain to the affected extremity. * No driving for 24 hours. * NO SMOKING. * Avoid straining for bowel movements for 7 days. * Gentle walking on level ground is allowed. * Returning to work will depend on the type of procedure and the results. Your doctor will discuss this with you. CALL YOUR DOCTOR FOR ANY OF THE FOLLOWING: *If bleeding from the puncture site occurs- Apply gentle pressure to site with clean cloth and call your doctor or EMS. * If a knot or lump forms under the skin, increases in size, or causes pain. * If bruising appears to be worsening or moving further down your leg instead of disappearing. * Temperature above 101 F. CARE OF YOUR GROIN INCISION; * Bruising or purple discoloration of the skin near the puncture site is common. * You may shower only, no bathtub bathing for 5 days. Be careful to avoid slipping as your leg may feel stiff. * If a closure device was used on your femoral artery, please see the attached guide regarding care of the device and your leg. * Leave the dressing on, until removed by office staff. CARE OF YOUR WRIST INCISION; * Bruising or purple discoloration of the skin near the puncture site is common. * You may shower. * DO NOT submerge wrist. * Leave dressing on, until removed by office staff.. RACHELLE PAYAN MD [facility] CCDS Sep 08, 2018 16:06
[2018-09-08] MEDS: ATORVASTATIN 40 MG (LIPITOR) TABLET PO SCH (20:28)
[2018-09-08] MEDS ORDERED: ATORVASTATIN 40 MG (LIPITOR) TABLET PO SCH (21:00)
--- NOTE | 2018-09-08 22:05 | CARDIAC CATHETERIZATION ---
DATE OF SERVICE: 09/08/2018 CARDIAC CATHETERIZATION AND CORONARY INTERVENTION REPORT The patient is a 63-year-old man, who was transferred to this hospital after he had profound bradycardia and hypotension during arthroscopic surgery at the [facility]. His troponin, subsequently, was mildly elevated, indicative of a small non-ST elevation myocardial infarction. His perioperative event was felt to have been due to transient coronary ischemia. Cardiac catheterization was carried out today after having obtained informed consent. He was made aware that he had chronic kidney disease, which increases his risk of contrast nephropathy. He provided informed consent. Vigorous perioperative hydration was carried out preoperatively, during the procedure and afterwards. PROCEDURE: He was brought to the cardiac catheterization laboratory in a fasting state. Right groin was prepared and draped in usual sterile fashion. A 1% lidocaine for local anesthesia. Modified Seldinger technique was used to advance a 5-American sheath in the right femoral artery. A 5-American JL3.5 catheter was used for left coronary angiography. A 5-American JR4 catheter for right coronary angiography. A 5-American pigtail catheter was used for left heart catheterization. Left ventricular angiography was not performed. This was to conserve dye, given the patient's chronic kidney disease. CORONARY INTERVENTION TO THE LEFT ANTERIOR DESCENDING ARTERY: Following completion of the diagnostic procedure, we exchanged the sheath over a wire for a 6-American sheath. We gave 7000 units of intravenous heparin and double bolus of Integrilin during the procedure. We engaged the left coronary artery with a JL3.5 guide catheter. We advanced a ChoICE floppy wire across the lesion with moderate difficulty and the tip was placed in the distal vessel. We carried out balloon angioplasty at the site of 95% stenosis in the proximal left anterior descending. This reduced the stenosis to approximately 75%. We removed the balloon and advanced Earline 3.0 x 23 mm stent. This was carefully positioned to cover the entire lesion. The stent was deployed at 14 atmospheres. The stent balloon was then pulled back to the proximal portion of stent and balloon inflation was carried out at 20 atmospheres. Subsequently, following the removal of the stent balloon, we carried out post-dilation of the proximal portion of the stent with a 3.5 x 12 mm noncompliant balloon. This is because the proximal part of the stented part of the vessel is of a slightly larger caliber than the distal part. Subsequent angiography revealed 0% residual stenosis. A very small first diagonal emerges from the site of lesion. This remained unchanged. This is a tiny vessel and is not amenable to intervention. The left circumflex artery is dominant. Right coronary artery is nondominant. At the end of procedure, following removal of the angioplasty equipment, angiography of the right femoral artery was carried out through the sheath. Mynx was used to achieve hemostasis. HEMODYNAMICS: Left ventricular end-diastolic pressure following coronary angiography was 15 mmHg. There is no significant pressure gradient on pullback across the aortic valve. Ascending aortic pressure was 111/62 with a mean of 85 mmHg. CORONARY ANGIOGRAPHY: Left main coronary artery is free of significant disease. Left anterior descending artery had a 95% proximal stenosis to which successful intervention was carried out as detailed above. Following deployment of Earline 3.0 x 23 mm stent (proximal portion postdilated with 3.5 x 12 mm noncompliant balloon), there is no significant residual stenosis. The first diagonal branch is a tiny vessel that arises from the proximal stenosis within the left anterior descending artery and remains unchanged following stenting of the left anterior descending artery. The left circumflex artery is dominant. The right coronary artery is nondominant. The coronaries have mild plaque. CONCLUSIONS: 1. Coronary artery disease primarily consisting of 95% proximal stenosis of the left anterior descending artery to which stenting was carried out with Earline 3.0 x 23 mm stent that was postdilated with a 3.5 x 12 mm noncompliant balloon. This reduced stenosis to 0% residual. The rest of the coronary vessels have mild plaque. 2. Mild elevation of left ventricular end-diastolic pressure. 3. Left ventricular angiography was not performed. This was to conserve dye. On echocardiography of 09/07/2018, left ventricular ejection fraction is 55% to 60% without significant regional wall motion abnormality. DISCUSSION AND RECOMMENDATIONS: He is being treated with aspirin and clopidogrel and statin. Low-dose beta elieser has been added and will be continued if tolerated by blood pressure and heart rate. Outpatient cardiology followup is advised. Job ID: [id number] DocumentID: [id number] Dictated Date: 09/08/2018 16:25:41 Dish Room Worker Date: 09/08/2018 22:04:54 Dictated By: RACHELLE PAYAN MD, MA, FACP, FACC, MTDD
[2018-09-09] VITALS (13 sets, daily range): BP systolic 106–142; BP diastolic 67–84
[2018-09-09] MEDS: oxyCODONE/APAP 5/325MG (PERCOCET 5) TABLET PO PRN ×3 (01:24→11:26)
[2018-09-09] MEDS: NS IV 1000 ML 1,000 ML IV SCH ×2 (01:56)
[2018-09-09 03:49] LABS: HEMOGLOBIN 10.4 G/DL (13.3-17.7); MEAN PLATELET VOLUME 10.6 FL (7.4-10.4); RED BLOOD COUNT 3.39 10^6/uL (4.35-5.85); RED CELL DISTRIBUTION WIDTH 14.2 % (10.0-14.5); WHITE BLOOD COUNT 6.3 10^3/uL (4.3-11.0)
[2018-09-09 04:07] LABS: BUN/CREATININE RATIO 19; CALCIUM 7.8 MG/DL (8.5-10.1); CARBON DIOXIDE 19 MMOL/L (21-32); CHLORIDE 113 MMOL/L (98-107); CREATININE SERUM 1.08 MG/DL (0.60-1.30); GFR ESTIMATED > 60; GLUCOSE 92 MG/DL (70-105); MAGNESIUM 1.8 MG/DL (1.8-2.4); POTASSIUM 4.2 MMOL/L (3.6-5.0); SODIUM 139 MMOL/L (135-145)
[2018-09-09] MEDS: MAGNESIUM 1 GM/100 ML IVPB 100 ML IV SCH (05:43)
[2018-09-09] MEDS: KCL 20 MEQ TAB (K-DUR) PO SCH (05:43)
[2018-09-09] MEDS: POTASSIUM CL 10MEQ/50ML IVPB 50 ML IV SCH (05:43)
[2018-09-09] MEDS: ASPIRIN 81 MG CHEW (CHILDREN'S ASA) PO SCH (08:29)
[2018-09-09] MEDS ORDERED: CLOPIDOGREL 75 MG (PLAVIX) TABLET PO SCH (09:00)
--- NOTE | 2018-09-09 11:22 | Cardiology Progress Note ---
Cardiology SOAP Progress Note Subjective: No further chest pain. Objective: I&O/Vital Signs 09/08/18 09/09/18 09/09/18 09/09/18 23:59 00:00 00:00 01:00 Temp 98.6 Pulse 59 64 Resp 11 B/P (MAP) 106/67 (80) Pulse Ox 95 O2 Delivery Room Air Room Air 09/09/18 09/09/18 09/09/18 09/09/18 01:00 02:00 03:00 04:00 Pulse 64 57 62 Resp 10 9 10 B/P (MAP) 111/71 (84) 108/69 (82) 108/70 (83) Pulse Ox 96 95 95 O2 Delivery Room Air Room Air Room Air Room Air 09/09/18 09/09/18 09/09/18 09/09/18 04:00 04:00 05:00 06:00 Temp 98.0 Pulse 58 60 57 Resp 12 9 14 B/P (MAP) 117/72 (87) 112/74 (87) 117/77 (90) Pulse Ox 95 96 97 O2 Delivery Room Air Room Air Room Air 09/09/18 09/09/18 07:00 08:11 Temp 99.2 Pulse 58 O2 Delivery Room Air 09/09/18 00:00 Intake Total 1180 ml Output Total 1300 ml Balance -120 ml Weight (Pounds): 240 Weight (Ounces): 2.0 Weight (Calculated Kilograms): 108.458376 Constitutional: AAO x 3, well-developed, well-nourished Respiratory: No accessory muscle use; chest is bilaterally symmetric, lungs clear to percussion, lungs clear to auscultation Cardiovascular: regular rate-rhythm, S1 and S2, systolic murmur (soft SONIDO at card base) Gastrointestional: No tender; soft; No guarding, No rebound; audible bowel sounds Extremities: No normal range of motion, No non-tender, No normal inspection, No pedal edema, No calf tenderness, No normal capillary refill, No pelvis stable , No calf tenderness, No inflammation, No pedal edema, No slow capillary refill , No swelling; other (swelling at site of surgery on the knee); No abrasion, No clubbing, No cyanosis, No ecchymosis, No laceration, No no lower extremity edema bilateral, No significant edema, No tenderness, No wound Neurologic/Psychiatric: no motor/sensory deficits, alert, normal mood/affect, oriented x 3, grossly intact, power is 5/5 both on sides Skin: No normal color, No warm/dry, No cyanosis, No cool, No diaphoresis, No damp, No ecchymosis, No jaundice, No mottled, No pallor, No rash, No tattoos/ piercings, No ulcerations, No rash on exposed areas, No ulcerations on exposed areas, No other Results/Procedures: Labs Laboratory Tests 09/09/18 03:37: White Blood Count 6.3, Red Blood Count 3.39L, Hemoglobin 10.4L, Hematocrit 32L, Mean Corpuscular Volume 93, Mean Corpuscular Hemoglobin 31, Mean Corpuscular Hemoglobin Concent 33, Red Cell Distribution Width 14.2, Platelet Count 124L, Mean Platelet Volume 10.6H, Sodium Level 139, Potassium Level 4.2, Chloride Level 113H, Carbon Dioxide Level 19L, Anion Gap 7, Blood Urea Nitrogen 21H, Creatinine 1.08, Estimat Glomerular Filtration Rate > 60, BUN/Creatinine Ratio 19, Glucose Level 92, Calcium Level 7.8L, Magnesium Level 1.8 A/P: Assessment/Dx: Assessment: Episode of bradycardia and hypotension during arthroscopic knee surgery under anesthesia on 09/07/18 Mildly elevated troponin, suspect small NSTEMI, status post PCI to the LAD with drug-eluting stent by Dr. Rodriguez. 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 S/p R knee arthroscopic surgery Plan: Plan: * Given elevated troponin, NSTEMI is a strong consideration. PCI to the LAD with drug-eluting stent. * Will be discharged today. Follow-up with Dr. Rodriguez in one to 2 weeks. Compliance with medications especially Plavix was strongly recommended. All discharge instruction were discussed at length. Thank you for your consultation. Please call me if you have any questions. Yumiko Beltran MD, FACP, FACC, FSCAI, FHRS, CCDS Interventional Cardiology Cardiac Electrophysiology Vascular Medicine and Endovascular Interventions Nilton BELTRAN MD Sep 09, 2018 11:22 am
== END 2018-09-09 12:58 | disposition home or self-care (01) | DRG 247 ==
LOC: ICU 13:15 → OBSVTOIN 15:45
PROVIDERS: ADMIT Internal Medicine Cardiovascular Disease; ATTEND Internal Medicine Cardiovascular Disease
PROC: 027034Z Dilation of Coronary Artery, One Artery with Drug-eluting Intraluminal Device, Percutaneous Approach (ICD-10-PCS; principal; 2018-09-08)
PROC: 4A023N7 Measurement of Cardiac Sampling and Pressure, Left Heart, Percutaneous Approach (ICD-10-PCS; 2018-09-08)
PROC: B2111ZZ Fluoroscopy of Multiple Coronary Arteries using Low Osmolar Contrast (ICD-10-PCS; 2018-09-08)
DX: I21.4 Non-ST elevation (NSTEMI) myocardial infarction (principal); R00.1 Bradycardia, unspecified; I95.9 Hypotension, unspecified; I25.10 Atherosclerotic heart disease of native coronary artery without angina pectoris; I12.9 Hypertensive chronic kidney disease with stage 1 through stage 4 chronic kidney disease, or unspecified chronic kidney disease; N18.2 Chronic kidney disease, stage 2 (mild); D64.89 Other specified anemias; D50.0 Iron deficiency anemia secondary to blood loss (chronic); R73.03 Prediabetes; E66.9 Obesity, unspecified; Z68.32 Body mass index [BMI] 32.0-32.9, adult; Z23 Encounter for immunization
CPT/HCPCS: 36415; 80048; 80053; 83735; 84443; 84484; 85025; 85027; 90471; 90686; 93005; 93306; 93458; G0378